=== PATIENT | male | born 1940 | race Caucasian/White ===

== ENCOUNTER 2022-04-09 14:17 | Outpatient (CLI) | payer MEDICARE, BC, SELFPAY ==
[2022-04-09 12:30] LABS: Albumin* 4.5 g/dL (3.3-5.0); Chloride* 105 mmol/L (96-114)
[2022-04-09 12:31] LABS: Potassium* 4.8 mmol/L (3.6-5.1); Sodium* 139 mmol/L (135-149)
[2022-04-09 12:33] LABS: Alkaline Phosphatase* 86 U/L (40-150); Aspartate Amino Transferase* 25 U/L (12-35); Bilirubin Total* 0.6 mg/dL (0.1-1.5); Blood Urea Nitrogen* 13 mg/dL (7-30); Carbon Dioxide* 28 mmol/L (20-32); Cholesterol* 165 mg/dL (90-199); Creatinine* 0.8 mg/dL (0.5-1.5); Estimated Glomerular Filt Rate 89 ml/min
[2022-04-09 12:34] LABS: Alanine Aminotransferase* 17 U/L (4-50); Calcium* 9.2 mg/dL (8.4-10.6); Glucose* 92 mg/dL (60-115); HDL Cholesterol* 53 mg/dL (>=40); LDL Cholesterol Calculated 82 mg/dL (<100); Triglycerides* 150 mg/dL (40-149)
[2022-04-09 13:04] LABS: PSA Diagnostic* 2.38 ng/mL (0.10-4.00)
== END 2022-04-09 14:18 | disposition home or self-care (01) ==
PROVIDERS: PCP Family Medicine; Visit Provider Family Medicine
DX: Z00.00 Encounter for general adult medical examination without abnormal findings (principal); C61 Malignant neoplasm of prostate; E78.5 Hyperlipidemia, unspecified; Z12.5 Encounter for screening for malignant neoplasm of prostate
CPT/HCPCS: 80053; 80061; 84153

== ENCOUNTER 2023-04-29 09:13 | Outpatient (REF) | payer MEDICARE, BC, SELFPAY | END 2023-04-29 09:14 | disposition home or self-care (01) | LOC: NFLDREF 09:13 | PROVIDERS: PCP Family Medicine; Referring Provider Family Medicine; Visit Provider Family Medicine | DX: I25.10 Atherosclerotic heart disease of native coronary artery without angina pectoris (principal); E78.5 Hyperlipidemia, unspecified; C61 Malignant neoplasm of prostate | CPT/HCPCS: 80053; 80061; 84153 ==

== ENCOUNTER 2023-11-28 09:11 | Outpatient (CLI) | payer MEDICARE, BC, SELFPAY ==
--- NOTE | 2023-11-28 09:45 | CRLHL7_ITS ---
For Patients: As a result of the Century Cures Act, medical imaging exams and procedure reports are released immediately into your electronic medical record. You may view this report before your referring provider. If you have questions, please contact your health care provider. Indication: Radiculopathy. Technique: MRI of the cervical spine was performed without the use of intravenous contrast. Comparison: None relevant available. Findings: The vertebral body heights appear maintained without evidence of fracture. No discrete T1 hypointense marrow infiltrating process. Moderate multilevel disc height loss and degeneration. Slight straightening to the cervical lordosis. There may be subtle stir hyperintense cord signal change at the C5-6 level. C2-3: No spinal canal narrowing. Mild neural foraminal narrowing secondary to uncovertebral joint and facet hypertrophy. C3-4: Disc bulge results in mild spinal canal narrowing. Moderately severe right and moderate left neural foraminal narrowing secondary to uncovertebral joint and facet hypertrophy. C4-5: Disc bulge resulting in [id number] spinal canal narrowing. Moderately severe neural foraminal stenosis secondary to uncovertebral joint and facet hypertrophy. Fluid and reactive marrow edema right facet joint. C5-6: Disc protrusion resulting in severe spinal canal narrowing with mild cord flattening. Moderately severe neural foraminal stenosis secondary to uncovertebral joint and facet hypertrophy. C6-7: Disc bulge results in moderate spinal canal narrowing. Moderate neural foraminal narrowing. C7-T1: No spinal canal narrowing. Mild right neural foraminal narrowing. Left neural foramen is patent. Impression: 1. At C3-4, mild spinal canal with moderately severe right and moderate left neural foraminal stenosis. 2. At C4-5, mild to moderate spinal canal with moderately severe neural foraminal stenosis. 3. At C5-6, severe spinal canal stenosis with mild cord flattening. Moderately severe neural foraminal stenosis. 4. At C6-7, moderate spinal canal and neural foraminal stenosis. 5. Right C4-5 facet joint reactive arthritis/active degeneration with joint fluid and marrow edema. 6. Subtle STIR hyperintense cord signal change at the C5-6 level may represent myelomalacia. Dictated by Santi Toth MD @ 11/29/2023 2:22:34 PM (Electronically Signed)
--- NOTE | 2023-11-28 10:30 | CRLHL7_ITS ---
For Patients: As a result of the Century Cures Act, medical imaging exams and procedure reports are released immediately into your electronic medical record. You may view this report before your referring provider. If you have questions, please contact your health care provider. INDICATION: Lumbar radiculopathy. TECHNIQUE : Lumbar spine MRI without contrast. COMPARISON: Lumbar spine MRI from 10/14/2018. FINDINGS : Five lumbar type vertebral bodies, with the last fully formed disc space designated as L5-S1. Normal lumbar lordosis. Mild levoconvex lumbar scoliosis with apex at L2. No recent compression fracture or marrow replacing process. Lower cord/conus signal is normal. The conus terminates at a normal location. No intradural lesion. Partially imaged infrarenal abdominal aortic aneurysm. Discs/Endplates: Advanced disc height loss, disc desiccation and degenerative endplate remodeling at L1-2/L2-3 on the right, L3-4 posteriorly, L4-5 on the left, and L5-S1 posteriorly. [id number] disc height loss and disc desiccation elsewhere. Exuberant type 1 reactive marrow changes at L1-2 and L2-3. Mild type 1 reactive marrow changes at L3-4 on the right. Mild type 1 reactive marrow changes at L4-5 and L5-S1 on the left. Findings at individual levels as follows: T11-12: Mild disc bulge. No spinal canal or neural foraminal stenosis. T12-L1: Trace retrolisthesis. Mild disc bulge. Bilateral facet arthrosis. Mild spinal canal stenosis and mild bilateral neural foraminal stenosis. L1-2: Trace retrolisthesis. Moderate disc bulge with overlying osteophytic ridging, asymmetric to the right. Bilateral low-grade facet arthrosis. Mild spinal canal stenosis and right subarticular recess stenosis with encroachment of the traversing right L2 nerve root. Mild left and moderate right neural foraminal stenosis. L2-3: Trace retrolisthesis. Moderate disc bulge with underlying osteophytic ridging. Bilateral facet arthrosis. Yjbj-ev-ckslqqja spinal canal stenosis and mild bilateral neural foraminal stenosis. L3-4: Moderate disc bulge with overlying osteophytic ridging. Bilateral facet arthrosis and ligamentum flavum thickening. Advanced spinal canal stenosis with buckling of the cauda equina. A superimposed right foraminal/far lateral disc protrusion which impinges the right L3 nerve root. Moderate left and moderately advanced right neural foraminal stenosis. L4-5: 3 millimeters anterolisthesis. Superior disc unroofing and superimposed moderate disc bulge with underlying osteophytic ridging, asymmetric to the left. Bilateral facet arthrosis. Moderately advanced spinal canal stenosis and left subarticular recess stenosis with impingement of the traversing left L5 nerve root. Mild right and moderately advanced left neural foraminal stenosis with impingement of the exiting left L4 nerve root. L5-S1: Trace anterolisthesis. Moderate disc bulge with underlying osteophytic ridging, asymmetric to the left. Bilateral facet arthrosis, high-grade on the left. Mild to moderate right and moderately advanced left neural foraminal stenosis with impingement of the exiting left L4 nerve root. Imaged SI joints: Bilateral arthrosis. Imaged sacrum: Within normal limits. IMPRESSION: 1. At L3-4, advanced spinal canal stenosis, progressed since prior MRI. A right foraminal/far lateral protrusion impinges the right L3 nerve root with moderately advanced right neural foraminal stenosis. New since prior MRI. 2. At L4-5, moderately advanced spinal canal stenosis and left subarticular recess stenosis with impingement of the traversing left L5 nerve root. Progressed since prior MRI. Moderately advanced left neural foraminal stenosis with impingement of the exiting left L4 nerve root. Stable. 3. At L5-S1, moderately advanced left neural foraminal stenosis with impingement of the exiting left L5 nerve root. Stable. 4. Diffuse lumbar disc degeneration asymmetric height loss contributing to mild levoconvex scoliosis. Type 1 reactive marrow changes at most levels. 5. Partially imaged infrarenal abdominal aortic aneurysm. Also visible on CT from 09/20/2021. Dictated by Ricardo Zhao MD @ 12/02/2023 10:25:34 AM (Electronically Signed)
== END 2023-11-28 09:12 | disposition home or self-care (01) ==
LOC: MRI 09:13
PROVIDERS: PCP Family Medicine; Visit Provider Nurse Practitioner Family
DX: M54.12 Radiculopathy, cervical region (principal); M48.02 Spinal stenosis, cervical region; M51.36 Other intervertebral disc degeneration, lumbar region; M54.16 Radiculopathy, lumbar region
CPT/HCPCS: 72141; 72148

== ENCOUNTER 2023-12-23 10:04 | Outpatient (CLI) | payer MEDICARE, BC, SELFPAY ==
--- NOTE | 2023-12-23 10:00 | CRLHL7_ITS ---
For Patients: As a result of the Century Cures Act, medical imaging exams and procedure reports are released immediately into your electronic medical record. You may view this report before your referring provider. If you have questions, please contact your health care provider. Indication: Back pain Technique: Lumbar spine two views, lateral flexion and extension Comparison: 11/28/2023 IMPRESSION: Grade 1 degenerative spondylolisthesis of L5 on S1. No vertebral body compression fracture. Multilevel degenerative changes most prominent at L1-2. Vascular calcifications. Multilevel facet degeneration. Dictated by Mack Alvarez MD @ 12/23/2023 10:28:25 AM (Electronically Signed)
== END 2023-12-23 10:05 | disposition home or self-care (01) ==
PROVIDERS: PCP Family Medicine; Visit Provider Nurse Practitioner Family
DX: M54.9 Dorsalgia, unspecified (principal); M43.17 Spondylolisthesis, lumbosacral region
CPT/HCPCS: 72100

== ENCOUNTER 2024-01-29 13:27 | Outpatient (CLI) | payer MEDICARE, BC, SELFPAY | END 2024-01-29 13:28 | disposition home or self-care (01) | LOC: NFLDREF 13:28 | PROVIDERS: PCP Family Medicine; Visit Provider Family Medicine | DX: I25.10 Atherosclerotic heart disease of native coronary artery without angina pectoris (principal) | CPT/HCPCS: 80048 ==

== ENCOUNTER 2024-02-28 08:14 | Observation (INO) | payer MEDICARE, BC, SELFPAY ==
[2024-02-28] VITALS (9 sets, daily range): BP systolic 133–200; BP diastolic 80–105; PULSE 68–79; RESP 14–20; TEMP 36.6–37.3; O2SAT 92–96; BMI 26.9; BMI 27.2
--- NOTE | 2024-02-28 09:26 | ED_ITS ---
<Statement entered by Laura Alford MD - 03/04/24 15:45> inadvertently opened. HPI - General Adult General Chief complaint: Back Injury/Pain Stated complaint: Extreme pain s/p spinal stim procedure yesterday Time Seen by Provider: 02/28/24 09:26 History of Present Illness HPI narrative: Pt had spinal stimulator placed yesterday at [facility] in [place]. Now is having worsened back pain, leg pain, and severe headache which started immediately post-procedure. 9/10 pain. Pt declined pain medication that was offered by the surgical clinic at that time. Pt also states he has not had BM in 3 days. 84-year-old man presenting to the emergency department with concern of terrible low back bilateral leg pain and headache. History of spinal stenosis in the cervical and lumbar spine and yesterday with placement of a spinal stimulator. Pain has been present since that time. Is not had any fever or noted any swelling. They have been taking tablets of [place] overnight it sounds like dosed 1 at the time. It has been 3 days since he has had a bowel movement. Headache is not clearly positional. New pain includes radiation into his legs bilaterally and the headache. Is not complaining of shortness of breath or chest pain. Lives independently however son has been staying with him lately. Son accompanies here today. Related Data Home Medications ?Medication ?Instructions ?Recorded ?Confirmed amlodipine 2.5 mg tablet 2.5 mg PO DAILY 02/28/24 03/02/24 cephalexin 500 mg capsule 500 mg PO Q6H 02/28/24 03/02/24 lovastatin 20 mg tablet 20 mg PO HS 02/28/24 03/02/24 Previous Rx's ?Medication ?Instructions ?Recorded gabapentin 300 mg capsule 300 mg PO TID #270 caps 05/01/23 lisinopril 40 mg tablet 40 mg PO DAILY #90 tabs 05/01/23 metoprolol succinate 50 mg 50 mg PO DAILY #90 tabs 05/01/23 tablet,extended release 24 hr omeprazole 20 mg capsule,delayed 20 mg PO DAILY #90 caps 05/01/23 release polyethylene glycol 3350 17 gram 17 g PO DAILY #30 ea 02/29/24 oral powder packet (Miralax) sennosides 8.6 mg-docusate sodium 2 tab PO BID #120 tabs 02/29/24 50 mg tablet (Stool Softener-Laxative) hydrocodone 5 mg-acetaminophen 325 2 tab PO Q4H PRN pain #30 tabs 03/03/24 mg tablet Allergies Allergy/AdvReac Type Severity Reaction Status Date / Time No Known Allergies Allergy Unverified 03/02/24 14:57 Review of Systems Status of ROS: Reports: 6 or more systems reviewed and unremarkable except as noted in History and below [facility] Medical History Chronic low back pain ?M54.50 - Low back pain, unspecified (ICD-10) ?G89.29 - Other chronic pain (ICD-10) Chronic neck pain ?M54.2 - Cervicalgia (ICD-10) ?G89.29 - Other chronic pain (ICD-10) Colon polyp ?K63.5 - Polyp of colon (ICD-10) Coronary artery disease ?I25.10 - Atherosclerotic heart disease of [place] coronary artery without angina pectoris (ICD-10) 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 ?M50.90 - Cervical disc disorder, unspecified, unspecified cervical region (ICD-10) Fasting hyperglycemia ?R73.01 - Impaired fasting glucose (ICD-10) GERD (gastroesophageal reflux disease) ?K21.9 - Gastro-esophageal reflux disease without esophagitis (ICD-10) 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 ?M51.26 - Other intervertebral disc displacement, lumbar region (ICD-10) ?M51.36 - Other intervertebral disc degeneration, lumbar region (ICD-10) Hyperlipidemia ?E78.5 - Hyperlipidemia, unspecified (ICD-10) Hypertension ?I10 - Essential (primary) hypertension (ICD-10) Malignant neoplasm of prostate ?C61 - Malignant neoplasm of prostate (ICD-10) Mastoiditis ?H70.90 - Unspecified mastoiditis, unspecified ear (ICD-10) Partial small bowel obstruction ?K56.600 - Partial intestinal obstruction, unspecified as to cause (ICD-10) Small bowel obstruction ?K56.609 - Unspecified intestinal obstruction, unspecified as to partial ve rsus complete obstruction (ICD-10) History of pilonidal cyst ?Z87.2 - Personal history of diseases of the skin and subcutaneous tissue (ICD-10) History of malignant neoplasm of prostate ?Z85.46 - Personal history of malignant neoplasm of prostate (ICD-10) Surgical History Status post prostatectomy ?Z90.79 - Acquired absence of other genital organ(s) (ICD-10) History of right inguinal hernia repair ?Z98.890 - Other specified postprocedural states (ICD-10) ?Z87.19 - Personal history of other diseases of the digestive system (ICD-10) History of hernia repair ?Z98.890 - Other specified postprocedural states (ICD-10) ?Z87.19 - Personal history of other diseases of the digestive system (ICD-10) Social History What is your current living situation?: I presently have a place to live Problems where you live: no known problems Problems where you live details: none In the past 12 months, utilities in danger of being shut off: no In past 12 months, lack of transportation kept you from medical appts, meetings, work, or getting things needed for daily living: no In the past 12 mos, have been you worried that your food would run out before you had money to buy more?: never true In the past 12 mos, the food you bought just didn't last and you didn't have money to buy more?: never true Highest level of school completed/degree received: Associate degree: occupational, technical, vocational program Smoking Status: Current some day smoker What tobacco products do you use: cigars Nicotine containing products detail: cigars at times How often do you have a drink containing alcohol: 4 or more times a week Al cohol type: hard liquor How many standard drinks containing alcohol do you have on a typical day: 1 or 2 How often do you have six or more drinks on one occasion: Never AUDIT-C Alcohol total score: 4 Non-prescribed substance use: denies use Caffeine: Yes (coffee) How often does anyone, including family, friends and others, physically hurt you : never How often does anyone, including family, friends and others, insult or talk down to you: never How often does anyone, including family, friends and others, threaten you with harm: never How often does anyone, including family, friends and others, scream or curse at you: never Little interest or pleasure in doing things: several days Feeling down, depressed, or hopeless: not at all service: Yes Exam Narrative: Exam Narrative: Pleasant. Clearly very uncomfortable. Groans with transitions. I find him lying on his right side. He is breathing easily. Lungs appear to be clear. Examination of the bandages in his back show small spot of dried blood in the bandage centrally. No surrounding inflammatory changes or swelling. Heart in regular rate and rhythm. Const: Vital Signs, click to edit/add: Vital Signs - 24 hr 02/28/24 08:21 02/28/24 11:05 Temperature 97.8 F Pulse Rate [Pulse Oximeter] 78 72 Respiratory Rate 16 16 Blood Pressure [Ri ght Upper Arm] 197/92 H 171/88 H Pulse Oximetry 95 92 Oxygen Delivery Me thod Room Air Room Air Documenting provider has reviewed patient's vital signs: yes Course Vital Signs Vital signs: Initial Vital Signs Temperature 97.8 F 02/28/24 08:21 Temperature Source Temporal Artery Scan 02/28/24 08:21 Pulse Rate 78 02/28/24 08:21 Respiratory Rate 16 02/28/24 08:21 Blood Pressure 197/92 H 02/28/24 08:21 Blood Pressure Mean 127 H 02/28/24 08:21 Blood Pressure Position Left Lateral 02/28/24 08:21 Pulse Oximetry 95 02/28/24 08:21 Oxygen Delivery Method Room Air 02/28/24 08:21 Vital Signs Temperature 97.8 F 02/28/24 08:21 Pulse Rate 78 02/28/24 08:21 Respiratory Rate 16 02/28/24 08:21 Blood Pressure 197/92 H 02/28/24 08:21 Pulse Oximetry 95 02/28/24 08:21 Oxygen Delivery Method Room Air 02/28/24 08:21 Temperature 98.6 F 02/29/24 11:22 Pulse Rate 75 02/29/24 11:22 Respiratory Rate 20 02/29/24 11:22 Blood Pressure 114/65 02/29/24 11:22 Pulse Oximetry 92 02/29/24 11:22 Oxygen Delivery Method Room Air 02/29/24 11:22 Medications Administered Medications: Discontinued Medications Generic Name Dose Route Start Last Admin Trade Name Freq PRN Reason Stop Dose Admin Hydrocodone Bitart/Acetaminophen 2 tab 02/28/24 10:40 02/28/24 11:01 Hydrocodone-Acetamin 5-325 Mg 1 Tab PO 02/28/24 10:41 2 tab ONCE ONE Administration Hydrocodone Bitart/Acetaminophen 2 tab 02/28/24 14:58 02/29/24 11:39 Hydrocodone-Acetamin 5-325 Mg 1 Tab PO 2 tab Q4H PRN Administration Amlodipine Besylate 2.5 mg 02/29/24 09:00 02/29/24 08:41 Amlodipine 5 Mg Tablet PO 2.5 mg DAILY PATSY Administration Amlodipine Besylate 5 mg 02/28/24 20:18 02/28/24 20:53 Amlodipine 5 Mg Tablet PO 02/28/24 20:19 5 mg ONCE ONE Administration Cephalexin HCl 500 mg 02/28/24 17:00 02/29/24 11:39 Cephalexin 500 Mg Capsule PO 500 mg 0700,1200,1700,2300 PATSY Administration Gabapentin 300 mg 02/28/24 21:00 02/29/24 08:41 Gabapentin 300 Mg Capsule PO 300 mg TID PATSY Administration Hydromorphone HCl 1 mg 02/28/24 09:35 02/28/24 09:57 Hydromorphone 0.5 Mg/0.5 Ml Inj IM 02/28/24 09:36 1 mg ONCE ONE Administration Lisinopril 40 mg 02/29/24 09:00 02/29/24 08:42 Lisinopril 20 Mg Tablet PO 40 mg DAILY PATSY Administration Lovastatin 20 mg 02/28/24 21:00 02/28/24 20:12 Lovastatin 20 Mg Tablet PO 20 mg HS PATSY Administration Metoprolol Succinate 50 mg 02/29/24 09:00 02/29/24 08:42 Metoprolol Succinate (Xl) 50 Mg Tab PO 50 mg DAILY PATSY Administration Omeprazole 20 mg 02/29/24 07:00 02/29/24 06:39 Omeprazole [address] PO 20 mg DAILY@0700 PATSY Administration Polyethylene Glycol 17 gm 02/28/24 14:58 02/28/24 15:20 Polyethylene Glycol 3350 17 Gm Pack PO 02/28/24 14:59 17 gm ONCE ONE Administration Polyethylene Glycol 17 gm 02/29/24 09:00 02/29/24 08:41 Polyethylene Glycol 3350 17 Gm Pack PO 17 gm DAILY PATSY Administration Senna/Docusate Sodium 2 tab 02/28/24 09:36 02/28/24 09:56 Sennosides/Docusate Tablet PO 02/28/24 09:37 2 tab BID ONE Administration Senna/Docusate Sodium 2 tab 02/28/24 21:00 02/29/24 08:42 Sennosides/Docusate Tablet PO 2 tab BID PATSY Administration Sodium Chloride 5 ml 02/28/24 21:00 02/29/24 08:42 Sodium Chloride 0.9 % (Flush) 10 Ml Syringe IVF 5 ml BID PATSY Administration Medical Decision Making MDM Narrative Medical decision making narrative: I think this is of too short duration to be infectious. Certainly could be hematoma collection that is contributing to these symptoms. There was concern expressed of spinal headache but I think that is not likely the case. This headache is not necessarily worsened when going to seated position. I do think that most likely what is needed is to try to break this pain and then see what pain management is needed however considering presentation here and recent manipulation in the spine I think will need imaging to verify whether not hematoma is present. Given injection of hydromorphone. CT of the lumbar spine reviewed by me shows extensive degenerative changes to this spine but I do not appreciate any hematoma. Stimulator lead noted. Radiology over-read as below notes also a pneumothorax. Technique: Volumetric multidetector CT images of the lumbar spine were obtained without the administration of IV contrast. Comparison: MRI lumbar spine November 28, 2023 Findings: The lumbar vertebral body heights are grossly preserved with extensive endplate Modic and subchondral cystic changes. There is straightening of the normal lumbar lordosis with moderate levo scoliotic deformity of the AP alignment. There is again seen severe multilevel degenerative disc disease with extensive vacuum disc phenomenon, marginal osteophyte formation, subchondral sclerosis and subchondral cystic changes. There is persistent moderate to severe spinal canal narrowing of the L4-L5 and L3-L4 levels. There is no displaced fracture or dislocation. There is postoperative change status post epidural stimulator placement with partial visualization of the pacer pack with minimal subcutaneous emphysema within the superficial paraspinous soft tissues. Grossly, the leads are intact throughout with demonstration of insertion into the thecal sac at the T12-L1 level with demonstration of epidural leads tracking along the left lateral thecal sac. Incidental note is made of moderate subpleural air within the partially visualized left hemidiaphragm likely representing a small left-sided pneumothorax. Additional air tracks along the left psoas muscle. No evidence of obvious epidural fluid. Impression: 1. Postoperative changes status post epidural stimulator placement with leads entering the spinal canal and thecal sac at the left L1 lamina and coursing along the left lateral aspect of the spinal canal above the visualized [id number]. 2. Incidental note made of mild left paraspinous and left sided subpleural air commensurate with a small left-sided pneumothorax with minimal air tracking along the left psoas muscle. Additional trace air is seen within the intrathecal space and left lateral epidural space at the L1-L2 level. 3. Otherwise stable degenerative changes of the lumbar spine worst at the L3-L4 and L4-L5 levels without evidence of significant postprocedural spinal canal narrowing or epidural hemorrhage. Will do a one view chest x-ray to evaluate further this pneumothorax. By my read on this chest x-ray I cannot see any pneumothorax. Did discuss this case with care provider at facility from yesterday. Noted no complications and quite unsure as to how pneumothorax might be potentially related. I think at this point general need to be admitted for monitoring for progression of this pneumothorax and to determine pain management needs. Did discuss this case with General surgery and as requested by admitting hospitalist will CT image looking for other potential causes of this pneumothorax. Medical Records Medical records reviewed: Yes I reviewed the patient's medical records Discharge Plan Discharge Clinical Impression: Uncontrolled pain, Pneumothorax Patient Disposition: Admitted As Observation Condition: Improved Activity Level: Activity as Tolerated Discharge Diet: Regular
--- NOTE | 2024-02-28 09:35 | CRLHL7_ITS ---
For Patients: As a result of the Century Cures Act, medical imaging exams and procedure reports are released immediately into your electronic medical record. You may view this report before your referring provider. If you have questions, please contact your health care provider. Indication: Spinal stimulator placement, increasing pain Technique: Volumetric multidetector CT images of the lumbar spine were obtained without the administration of IV contrast. Comparison: MRI lumbar spine November 28, 2023 Findings: The lumbar vertebral body heights are grossly preserved with extensive endplate Modic and subchondral cystic changes. There is straightening of the normal lumbar lordosis with moderate levo scoliotic deformity of the AP alignment. There is again seen severe multilevel degenerative disc disease with extensive vacuum disc phenomenon, marginal osteophyte formation, subchondral sclerosis and subchondral cystic changes. There is persistent moderate to severe spinal canal narrowing of the L4-L5 and L3-L4 levels. There is no displaced fracture or dislocation. There is postoperative change status post epidural stimulator placement with partial visualization of the pacer pack with minimal subcutaneous emphysema within the superficial paraspinous soft tissues. Grossly, the leads are intact throughout with demonstration of insertion into the thecal sac at the T12-L1 level with demonstration of epidural leads tracking along the left lateral thecal sac. Incidental note is made of moderate subpleural air within the partially visualized left hemidiaphragm likely representing a small left-sided pneumothorax. Additional air tracks along the left psoas muscle. No evidence of obvious epidural fluid. Impression: 1. Postoperative changes status post epidural stimulator placement with leads entering the spinal canal and thecal sac at the left L1 lamina and coursing along the left lateral aspect of the spinal canal above the visualized [id number]. 2. Incidental note made of mild left paraspinous and left sided subpleural air commensurate with a small left-sided pneumothorax with minimal air tracking along the left psoas muscle. Additional trace air is seen within the intrathecal space and left lateral epidural space at the L1-L2 level. 3. Otherwise stable degenerative changes of the lumbar spine worst at the L3-L4 and L4-L5 levels without evidence of significant postprocedural spinal canal narrowing or epidural hemorrhage. Please note that all CT scans at this facility use dose modulation, iterative reconstruction, and/or weight-based dosing when appropriate to reduce radiation dose to as low as reasonably achievable. Dictated by Dieudonne Scott MD @ 02/28/2024 10:28:08 AM (Electronically Signed)
[2024-02-28] MEDS: SENNOSIDES/DOCUSATE TABLET 2 TAB PO ×2 (09:56→20:11)
[2024-02-28] MEDS: HYDROmorphone 0.5 mg/0.5 ml inj 1 MG IM (09:57)
--- NOTE | 2024-02-28 10:32 | CRLHL7_ITS ---
For Patients: As a result of the Century Cures Act, medical imaging exams and procedure reports are released immediately into your electronic medical record. You may view this report before your referring provider. If you have questions, please contact your health care provider. Indication: Evaluate for pneumothorax. Technique: One view(s) of the chest. Comparison: Lumbar spine CT from 02/28/2024, 09/20/2021. Findings: Partially visualized spinal cord stimulator leads are present with tip at the T7 level. No pneumothorax seen on prior lumbar spine CT is not apparent radiographically. Cardiomediastinal silhouette is mildly enlarged. Atherosclerotic aortic calcifications. There are streaky opacities in the left lung base favoring subsegmental atelectasis. Possible nodular opacities along the left heart border (measuring 10 mm) and overlying the anterior right 4th rib (measuring 4 mm). No pleural effusion. Impression: 1. Known left pneumothorax seen on recent CT is not visualized radiographically. 2. Mild left basilar subsegmental atelectasis. 3. Two possible pulmonary nodules. Recommend nonemergent chest CT for further evaluation. Dictated by Cata Bynum MD @ 02/28/2024 11:13:53 AM (Electronically Signed)
[2024-02-28] MEDS: HYDROCODONE-ACETAMIN 5-325 MG 1 TAB 2 TAB PO ×3 (11:01→20:10)
--- NOTE | 2024-02-28 12:13 | CRLHL7_ITS ---
For Patients: As a result of the Century Cures Act, medical imaging exams and procedure reports are released immediately into your electronic medical record. You may view this report before your referring provider. If you have questions, please contact your health care provider. Indication: Evaluate pneumothorax. Technique: CT of the chest was performed following the administration of 75 mL Isovue 370. Comparison: Same day chest radiograph and lumbar spine CT. Findings: Lungs and pleura: Trace left basilar pneumothorax. No pleural effusion. No right pneumothorax. Mild dependent atelectasis in the upper and lower lobes. Subpleural right lower lobe pulmonary nodule measuring 7 mm. Few additional smaller right lower lobe pulmonary nodules. Left upper lobe calcified granuloma. Subpleural lingular nodule measures 5 mm. Heart and great vessels: The heart is normal in size. No pericardial effusion. Mildly enlarged main pulmonary artery, which can be seen in the setting of pulmonary artery hypertension. Moderate atherosclerotic aortic, coronary artery calcifications. Aortic valvular calcifications.. Thyroid and mediastinum: Thyroid is normal. No mediastinal lymphadenopathy by size criteria. Chest wall: Unremarkable. Visualized upper abdomen: 3 mm right upper pole nonobstructing renal calculus. Bones: Spinal cord stimulator leads are seen within the lower thoracic spine, tips at the T7 level. A small amount of gas is seen within the spinal canal at the T5 level. Multilevel degenerative disc disease. No acute fracture. Impression: 1. Trace left basilar pneumothorax. 2. Spinal cord stimulator leads terminate at T7. Small amount of air within the spinal canal at the T5 level. 3. Bilateral noncalcified pulmonary nodules measuring up to 7 mm in the right lower lobe. Recommend chest CT follow-up in 6-12 months to document stability. 4. Nonobstructing right upper pole renal calculus. Please note that all CT scans at this facility use dose modulation, iterative reconstruction, and/or weight-based dosing when appropriate to reduce radiation dose to as low as reasonably achievable. Dictated by Cata Bynum MD @ 02/28/2024 1:00:50 PM (Electronically Signed)
--- NOTE | 2024-02-28 14:57 | PM.IMHP1 ---
Hospitalist- H&P: HPI History of Present Illness Date Seen: 02/28/24 Chief complaint: Extreme pain s/p spinal stim procedure yesterday Narrative: Marino Sims is a 84 year old man with known chronic low back pain and cervical radiculopathy presents with worsened back pain and leg pain status post spinal stimulator implant yesterday, 02/27/2024. Underwent a trial of an external stimulator device with a modicum of benefit. After her health insurance approval, he opted to proceed with permanent spinal stimulation implantation which was undertaken yesterday. Reportedly he had had pain after the implantation that was more than what he ordinarily experiences. Nevertheless he was discharged home with prescription for hydrocodone 5/acetaminophen 325, 1/2-1 tab p.o. q.4 hours p.r.n. for pain. He attempted utilizing this without much relief. This morning the pain was more intense than what he has previously experienced. He and his son, Tam, opted to come into the hospital for further assessment at that time. In the course of the evaluation in the [facility] Emergency Department, CT scan of the lumbar spine were obtained without administration of IV contrast. The findings from this exam include the followin. Postoperative changes status post epidural stimulator placement with leads entering the spinal canal and thecal sac at the left L1 lamina and coursing along the left lateral aspect of the spinal canal above the visualized [id number]. 2. Incidental note made of mild left paraspinous and left sided subpleural air commensurate with a small left-sided pneumothorax with minimal air tracking along the left psoas muscle. Additional trace air is seen within the intrathecal space and left lateral epidural space at the L1-L2 level. 3. Otherwise stable degenerative changes of the lumbar spine worst at the L3-L4 and L4-L5 levels without evidence of significant postprocedural spinal canal narrowing or epidural hemorrhage. Call is placed to the [facility] in [place] worry he had the stimulator implanted. These findings were discussed. Pain specialist indicated that they have not had a pneumothorax with implantation of spinal stimulator in the past and that this is unusual. Discussion was also held with our general surgeon at [facility], who recommended that given the small size of the pneumothorax that we admit the patient for observation and that there is no indication to proceed with any other stabilizing procedures. Chest x-ray was obtained subsequently and did not demonstrate the presence of the small pneumothorax. CT scan of the chest was undertaken read demonstrating the known left pneumothorax seen on the CT scan and not seen on the chest x-ray. In the emergency department patient was given 2 tabs of the hydrocodone 5/acetaminophen 325 and noticed significant amount of pain relief. Review of Systems Narrative: Denies chest heaviness, pressure, tightness, or pain. Pain is mainly in the in the back. Denies syncope or near-syncope. Denies nausea or vomiting. Acknowledges decreased interest in eating when the pain was so intense earlier today. Is now interested in eating. Denies abdominal pain. Acknowledges no bowel movements for the last 3 days. This is not terribly unusual for him. He is known to have recurrent intermittent constipation. Has not had blood loss of any sort including upper or lower GI tract or urogenital or any other source. No recent trauma or injury aside from implant of the spinal stimulator as noted above which was undertaken on 02/27/2024. Denies any recent febrile illnesses. No fevers, rigors, diaphoresis. Denies dysuria, urgency, frequency, hematuria. Denies urinary retention. No focal motor neurologic deficits. Denies myalgias or arthralgias. Lives alone. His son, Tam, has been helping him out a lot more over the past 1 week. Tam spent the night with him last night. Patient's primary care physician is Dr. Norman Porter. Patient requests DNR DNI resuscitation status in the event of cardiopulmonary demise. He designates his son, Tam, as his power of traffic law attorney for health should that be required. Tam cell phone is [phone]. As I a.m. reviewed the patient's records his weight was 87 kg in September 2023, 84 kg on 01/29/2024, and today in the hospital his weight is 81.2 kg on a standing scale. Patient acknowledges decreased oral intake as he has been having more difficulties with pain management. He is not necessarily trying to lose weight. [facility] Medical History Chronic low back pain ?M54.50 - Low back pain, unspecified (ICD-10) ?G89.29 - Other chronic pain (ICD-10) Chronic neck pain ?M54.2 - Cervicalgia (ICD-10) ?G89.29 - Other chronic pain (ICD-10) Colon polyp ?K63.5 - Polyp of colon (ICD-10) Coronary artery disease ?I25.10 - Atherosclerotic heart disease of nikolski coronary artery without angina pectoris (ICD-10) 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 ?M50.90 - Cervical disc disorder, unspecified, unspecified cervical region (ICD-10) Fasting hyperglycemia ?R73.01 - Impaired fasting glucose (ICD-10) GERD (gastroesophageal reflux disease) ?K21.9 - Gastro-esophageal reflux disease without esophagitis (ICD-10) 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 ?M51.26 - Other intervertebral disc displacement, lumbar region (ICD-10) ?M51.36 - Other intervertebral disc degeneration, lumbar region (ICD-10) Hyperlipidemia ?E78.5 - Hyperlipidemia, unspecified (ICD-10) Hypertension ?I10 - Essential (primary) hypertension (ICD-10) Malignant neoplasm of prostate ?C61 - Malignant neoplasm of prostate (ICD-10) Mastoiditis ?H70.90 - Unspecified mastoiditis, unspecified ear (ICD-10) Partial small bowel obstruction ?K56.600 - Partial intestinal obstruction, unspecified as to cause (ICD-10) Small bowel obstruction ?K56.609 - Unspecified intestinal obstruction, unspecified as to partial versus complete obstruction (ICD-10) History of pilonidal cyst ?Z87.2 - Personal history of diseases of the skin and subcutaneous tissue (ICD-10) History of malignant neoplasm of prostate ?Z85.46 - Personal history of malignant neoplasm of prostate (ICD-10) Surgical History Status post prostatectomy ?Z90.79 - Acquired absence of other genital organ(s) (ICD-10) History of right inguinal hernia repair ?Z98.890 - Other specified postprocedural states (ICD-10) ?Z87.19 - Personal history of other diseases of the digestive system (ICD-10) History of hernia repair ?Z98.890 - Other specified postprocedural states (ICD-10) ?Z87.19 - Personal history of other diseases of the digestive system (ICD-10) Social History What is your current living situation?: I presently have a place to live Problems where you live: no known problems Problems where you live details: none In the past 12 months, utilities in danger of being shut off: no In past 12 months, lack of transportation kept you from medical appts, meetings, work, or getting things needed for daily living: no In the past 12 mos, have been you worried that your food would run out before you had money to buy more?: never true In the past 12 mos, the food you bought just didn't last and you didn't have money to buy more?: never true Highest level of school completed/degree received: Associate degree: occupational, technical, vocational program Smoking Status: Current some day smoker What tobacco products do you use: cigars Nicotine containing products detail: cigars at times How often do you have a drink containing alcohol: 4 or more times a week Alcohol type: hard liquor How many standard drinks containing alcohol do you have on a typical day: 1 or 2 How often do you have six or more drinks on one occasion: Never AUDIT-C Alcohol total score: 4 Non-prescribed substance use: denies use Caffeine: Yes (coffee) How often does anyone, including family, friends and others, physically hurt you: never How often does anyone, including family, friends and others, insult or talk down to you: never How often does anyone, including family, friends and others, threaten you with harm: never How often does anyone, including family, friends and others, scream or curse at you: never Little interest or pleasure in doing things: several days Feeling down, depressed, or hopeless: not at all service: Yes Meds Home Medications and Allergies Home Medications ?Medication ?Instructions ?Recorded ?Confirmed ?Type amlodipine 2.5 mg tablet 2.5 mg PO DAILY 02/28/24 02/28/24 History cephalexin 500 mg capsule 500 mg PO Q6H 02/28/24 02/28/24 History hydrocodone 5 mg-acetaminophen 325 0.5 - 1 tab PO Q4H PRN pain 02/28/24 02/28/24 History mg tablet lovastatin 20 mg tablet 20 mg PO HS 02/28/24 02/28/24 History Allergies Allergy/AdvReac Type Severity Reaction Status Date / Time No Known Allergies Allergy Unverified 02/28/24 13:05 Exam Narrative: Exam Narrative: Patient is examined in his hospital room. Appears comfortable in his hospital bed with head of bed elevated at 60?. No acute distress. Alert and oriented x4. Vision and hearing adequate. Friendly, articulate, cooperative. Neck is supple. No subcutaneous emphysema noted. Lungs clear to auscultation. Barrel-shaped chest. No CVA tenderness to thumping. Heart tones with regular rhythm, normal S1-S2. PMI not laterally displaced. Abdomen with active bowel sounds, soft, nontender. Obese. Extremities without edema. Moves all 4 extremities. Independent in transfer, station, and gait. No focal motor neurologic deficits. Const: Vital Signs, click to edit/add: Vital Signs - 24 hr 02/28/24 08:21 02/28/24 09:45 02/28/24 11:05 Temperature 97.8 F Pulse Rate [Pulse Oximeter] 78 72 Respiratory Rate 16 16 Blood Pressure [Le ft Arm] Blood Pressure [Ri ght Upper Arm] 197/92 H 171/88 H Pulse Oximetry 95 92 92 Oxygen Delivery Me thod Room Air Room Air 02/28/24 13:09 02/28/24 13:24 02/28/24 14:20 Temperature 99.2 F Pulse Rate [Pulse Oximeter] 71 73 Respiratory Rate 16 20 20 Blood Pressure [Le ft Arm] 165/102 H Blood Pressure [Ri ght Upper Arm] 139/90 H Pulse Oximetry 95 95 94 Oxygen Delivery Me thod Room Air Room Air Room Air Hospitalist - H&P: Result Imaging CT scan - lumbar spine: Radiologist's impression: 1. Postoperative changes status post epidural stimulator placement with leads entering the spinal canal and thecal sac at the left L1 lamina and coursing along the left lateral aspect of the spinal canal above the visualized [id number]. 2. Incidental note made of mild left paraspinous and left sided subpleural air commensurate with a small left-sided pneumothorax with minimal air tracking along the left psoas muscle. Additional trace air is seen within the intrathecal space and left lateral epidural space at the L1-L2 level. 3. Otherwise stable degenerative changes of the lumbar spine worst at the L3-L4 and L4-L5 levels without evidence of significant postprocedural spinal canal narrowing or epidural hemorrhage. Chest x-ray: Attestation: I have reviewed the pertinent imaging results. Radiologist's impression: 1. Known left pneumothorax seen on recent CT is not visualized radiographically. 2. Mild left basilar subsegmental atelectasis. 3. Two possible pulmonary nodules. Recommend nonemergent chest CT for further evaluation. CT scan - chest: Radiologist's impression: 1. Trace left basilar pneumothorax. 2. Spinal cord stimulator leads terminate at T7. Small amount of air within the spinal canal at the T5 level. 3. Bilateral noncalcified pulmonary nodules measuring up to 7 mm in the right lower lobe. Recommend chest CT follow-up in 6-12 months to document stability. 4. Nonobstructing right upper pole renal calculus. Assessment and Plan Assessment and plan (1) Pneumothorax: Problem comment: - discovered on Lumbar CT scan when assessing uncontrolled pain, with subsequent CT of chest demonstrating the followin. Trace left basilar pneumothorax. 2. Spinal cord stimulator leads terminate at T7. Small amount of air within the spinal canal at the T5 level. 3. Bilateral noncalcified pulmonary nodules measuring up to 7 mm in the right lower lobe. Recommend chest CT follow-up in 6-12 months to document stability. 4. Nonobstructing right upper pole renal calculus. - Reviewed with [facility] physician in [place] who implanted the spinal stimulator. This is an unusual complication of this procedure. - reviewed with general surgeon, [facility], who indicated that there was no need to proceed with placement of a chest tube at this time and recommended overnight observation. - reviewed with patient and son, Tam, who are agreeable with the above stated plan and recommendations. - will need follow-up with his pain clinic physician in time. Status: Acute (2) Uncontrolled pain: Problem comment: - uncontrolled back pain in back s/p spinal stimulator implant 02/27/24 -CT scan of lumbar spine 02/28/24 demonstrated the followin. Postoperative changes status post epidural stimulator placement with leads entering the spinal canal and thecal sac at the left L1 lamina and coursing along the left lateral aspect of the spinal canal above the visualized [id number]. 2. Incidental note made of mild left paraspinous and left sided subpleural air commensurate with a small left-sided pneumothorax with minimal air tracking along the left psoas muscle. Additional trace air is seen within the intrathecal space and left lateral epidural space at the L1-L2 level. 3. Otherwise stable degenerative changes of the lumbar spine worst at the L3-L4 and L4-L5 levels without evidence of significant postprocedural spinal canal narrowing or epidural hemorrhage. - continue with increased dose of the hydrocodone 5/acetaminophen 325, 2 tabs p.o. q.4 hours p.r.n. for pain for now. Monitor his response to this. - will need follow-up with his pain clinic clinician in time. Status: Acute (3) Chronic neck pain: Problem comment: - spinal stenosis with radiculopathy and pain - status [facility] [place] [place] Status: Acute (4) Chronic low back pain: Problem comment: - spinal stenosis with pain - status post spinal stimulator implant 02/27/2024, [facility], [place], [place] Status: Acute (5) Constipation: Problem comment: - acute on chronic with no bowel movement for 3 days prior to presentation to [facility] on 02/28/2024 - initiate scheduled MiraLax as well as scheduled senna tabs. - monitor response Status: Acute (6) Pulmonary nodules: Problem comment: - noted on CT scan of chest 02/28/2024: . Bilateral noncalcified pulmonary nodules measuring up to 7 mm in the right lower lobe. Recommend chest CT follow-up in 6-12 months to document stability. Status: Acute (7) Renal calculi: Problem comment: - noted on CT scan of chest on 02/28/2024: . Nonobstructing right upper pole renal calculus. Status: Acute Plan 1. Reviewed impression with patient and his son Tam 2. Reviewed plans and recommendations with patient and his son Tam 3. Answered their questions to their satisfaction 4. Continue with other supportive efforts for other underlying conditions 5. They are agreeable with above stated plans and recommendations Total Time Spent Total Time Spent: 60 minutes
[2024-02-28] MEDS: polyethylene glycoL 3350 17 GM PACK PO (15:20)
--- NOTE | 2024-02-28 15:30 | PC.NURSE ---
End of Shift: Patient pleasant and cooperative, alert and oriented. Patient arrived to floor about 1315, 1 assist/walker. At admission patient rated back pain 5-6/10, no pain meds given. Patient vitally stable, lungs diminished, BS WNL, IV SL and intact. Admission complete.
[2024-02-28] MEDS: cephALEXin 500 MG CAPSULE PO ×2 (17:26→22:50)
--- NOTE | 2024-02-28 18:55 | PC.NURSE ---
End of shift [id number]: Pt has been A&O and afebrile for the last 4 hours. VSS with exception to elevated BP r/t pain. Pt rates back pain at 6-7/10; PRN [place] given @ 1520 which provides relief. Pt is SBA with rolling walker. Tolerated regular diet with no c/o nausea. Denies dizziness. PIV in left AC is SL and C/D/I.?
[2024-02-28] MEDS: GABAPENTIN 300 MG CAPSULE PO (20:12)
[2024-02-28] MEDS: LOVASTATIN 20 MG TABLET PO (20:12)
[2024-02-28] MEDS: SODIUM CHLORIDE 0.9 % (FLUSH) 10 ML SYRINGE 5 ML IVF (20:12)
[2024-02-28] MEDS: AMLODIPINE 5 MG TABLET PO (20:53)
[2024-02-29] MEDS: HYDROCODONE-ACETAMIN 5-325 MG 1 TAB 2 TAB PO ×3 (00:10→11:39)
[2024-02-29 03:11] VITALS: BP 162/83; PULSE 75; RESP 20; TEMP 36.9; O2SAT 96
[2024-02-29] MEDS: OMEPRAZOLE 20 MG CAPSULE DR PO (06:39)
[2024-02-29] MEDS: cephALEXin 500 MG CAPSULE PO ×2 (06:40→11:39)
--- NOTE | 2024-02-29 06:47 | PC.NURSE ---
End of shift [id number]: Pt AxOx4, cooperative, and pleasant. Pt SBA GB W, tolerating activity well. Pt reported pain 6/10 throughout shift, functional tester typewriters utilized repositioning and PRN medication. Pt is continent of the bladder. Pt denies any headache/nausea/CP/SOB during shift. Pt has chronic numbness in bilateral hands. Pt tolerating fluids/diet well. Pt does not use call light appropriately and moves to the bathroom quickly. Edge Plugger encouraged slow and steady movements to the bathroom and the importance of using call light to prevent falls. Bed alarm in place. 2 dressings on lower posterior back CDI. Pt appears resting with call light in reach. ?
--- NOTE | 2024-02-29 07:00 | CRLHL7_ITS ---
For Patients: As a result of the Cures Act, medical imaging exams and procedure reports are released immediately into your electronic medical record. You may view this report before your referring provider. If you have questions, please contact your health care provider. INDICATION: Trace left basilar pneumothorax on CT TECHNIQUE: Chest 2 views. COMPARISON: CT chest 02/28/2024 FINDINGS: The heart is normal in size. The pulmonary vasculature is within normal limits. The lungs are clear without focal consolidation, pleural effusion or pneumothorax. The basilar pneumothorax seen on CT is not visualized radiographically. Nerve stimulator device is present. Mild multilevel degenerative changes spine. IMPRESSION: No acute process. Left basilar pneumothorax seen on the recent CT of the chest, if still present is not visualized radiographically. Dictated by Karen Williamson MD @ 02/29/2024 10:50:22 AM Dictated by: Karen Williamson MD @ 02/29/2024 10:50:49 (Electronically Signed)
[2024-02-29 07:46] VITALS: BP 133/77; PULSE 71; RESP 14; TEMP 37.4; O2SAT 94
[2024-02-29] MEDS: AMLODIPINE 5 MG TABLET 2.5 MG PO (08:41)
[2024-02-29] MEDS: polyethylene glycoL 3350 17 GM PACK PO (08:41)
[2024-02-29] MEDS: GABAPENTIN 300 MG CAPSULE PO (08:41)
[2024-02-29] MEDS: METOPROLOL SUCCINATE (XL) 50 MG TAB PO (08:42)
[2024-02-29] MEDS: SODIUM CHLORIDE 0.9 % (FLUSH) 10 ML SYRINGE 5 ML IVF (08:42)
[2024-02-29] MEDS: lisinopriL 20 MG TABLET 40 MG PO (08:42)
[2024-02-29] MEDS: SENNOSIDES/DOCUSATE TABLET 2 TAB PO (08:42)
[2024-02-29 11:22] VITALS: BP 114/65; PULSE 75; RESP 20; TEMP 37; O2SAT 92
--- NOTE | 2024-02-29 11:32 | P.DS_ITS ---
DS: Providers Provider Time Seen by Provider: 08:45 Date Seen: 02/29/24 Date of admission: 02/28/24 13:12 Primary care physician: Norman Porter MD Admitting Clinician: Laura Alford MD Consults: 02/28/24 14:58 Consult to Occupational Therapy [CONS] Routine Comment: Reason(s) for OT Consult:: Evaluate and Treat Any Restrictions?:: No Restrictions Consult to Physical Therapy [CONS] Routine Comment: Reason(s) for PT Consult:: Evaluate and Treat Any Restrictions?:: No Restrictions Attending Physician on discharge: Kasia Sahu MD Date of Discharge: 02/29/24 DS: Diagnosis Discharge Diagnosis (1) Pneumothorax: Status: Acute Problem details: - discovered on Lumbar CT scan when assessing uncontrolled pain, with subsequent CT of chest demonstrating the followin. Trace left basilar pneumothorax. 2. Spinal cord stimulator leads terminate at T7. Small amount of air within the spinal canal at the T5 level. 3. Bilateral noncalcified pulmonary nodules measuring up to 7 mm in the right lower lobe. Recommend chest CT follow-up in 6-12 months to document stability. 4. Nonobstructing right upper pole renal calculus. - Reviewed with [facility] physician in [place] who implanted the spinal stimulator. This is an unusual complication of this procedure. - reviewed with general surgeon, [facility], who indicated that there was no need to proceed with placement of a chest tube at this time and recommend ed overnight observation. - reviewed with patient and son, Tam, who are agreeable with the above stated plan and recommendations. - will need follow-up with his pain clinic physician in time. - 02/28 CXR: No acute process. Left basilar pneumothorax seen on the recent CT of the chest, if still present is not visualized radiographically. Discussed with Dr. Gaston from general surgery who recommended that patient could get f/u film as outpatient Saturday with back clinic or PCP. Discussed with patient and his son, Tam, who were agreeable with this plan. (2) Uncontrolled pain: Status: Acute Problem details: - uncontrolled back pain in back s/p spinal stimulator implant 02/27/24 -CT scan of lumbar spine 02/28/24 demonstrated the followin. Postoperative changes status post epidural stimulator placement with leads entering the spinal canal and thecal sac at the left L1 lamina and coursing along the left lateral aspect of the spinal canal above the visualized [id number]. 2. Incidental note made of mild left paraspinous and left sided subpleural air commensurate with a small left-sided pneumothorax with minimal air tracking along the left psoas muscle. Additional trace air is seen within the intrathecal space and left lateral epidural space at the L1-L2 level. 3. Otherwise stable degenerative changes of the lumbar spine worst at the L3-L4 and L4-L5 levels without evidence of significant postprocedural spinal canal narrowing or epidural hemorrhage. - continue with increased dose of the hydrocodone 5/acetaminophen 325, 2 tabs p.o. q.4 hours p.r.n. for pain for now. Monitor his response to this. - will need follow-up with his pain clinic clinician in time. - 02/28 Improving. Back pain back to usual level (while pain medicine is on board). He got sleep last night, which he thinks helped a lot. PT/OT worked with patient today and he was able to ambulate independently. Son, Tam is going to stay with him through the weekend. (3) Chronic low back pain: Status: Chronic Problem details: - spinal stenosis with pain - status [facility] [place] ([place]) Chronic neck pain: Status: Chronic Problem details: - spinal stenosis with radiculopathy and pain - status post spinal stimulator [facility] [place] ([place]) Constipation: Status: Acute Problem details: - acute on chronic with no bowel movement for 3 days prior to presentation to [facility] on 02/28/2024 - initiated scheduled MiraLax as well as scheduled senna tabs. (6) Pulmonary nodules: Status: Acute Problem details: - noted on CT scan of chest 02/28/2024: . Bilateral noncalcified pulmonary nodules measuring up to 7 mm in the right lower lobe. Recommend chest CT follow-up in 6-12 months to document stability. (7) Renal calculi: Status: Acute Problem details: - noted on CT scan of chest on 02/28/2024: . Nonobstructing right upper pole renal calculus. DS: Summary Hospital Course Hospital Course: Per H&P: Marino Sims is a 84 year old man with known chronic low back pain and cervical radiculopathy presents with worsened back pain and leg pain status post spinal stimulator implant yesterday, 02/27/2024. Underwent a trial of an external stimulator device with a modicum of benefit. After her health insurance approval, he opted to proceed with permanent spinal stimulation implantation which was undertaken yesterday. Reportedly he had had pain after the implantation that was more than what he ordinarily experiences. Nevertheless he was discharged home with prescription for hydrocodone 5/acetaminophen 325, 1/2-1 tab p.o. q.4 hours p.r.n. for pain. He attempted utilizing this without much relief. This morning the pain was more intense than what he has previously experienced. He and his son, Tam, opted to come into the hospital for further assessment at that time. In the course of the evaluation in the [facility] Emergency Department, CT scan of the lumbar spine were obtained without administration of IV contrast. The findings from this exam include the followin. Postoperative changes status post epidural stimulator placement with leads entering the spinal canal and thecal sac at the left L1 lamina and coursing along the left lateral aspect of the spinal canal above the visualized [id number]. 2. Incidental note made of mild left paraspinous and left sided subpleural air commensurate with a small left-sided pneumothorax with minimal air tracking along the left psoas muscle. Additional trace air is seen within the intrathecal space and left lateral epidural space at the L1-L2 level. 3. Otherwise stable degenerative changes of the lumbar spine worst at the L3-L4 and L4-L5 levels without evidence of significant postprocedural spinal canal narrowing or epidural hemorrhage. Call is placed to the [facility] in [place] worry he had the stimulator implanted. These findings were discussed. Pain specialist indicated that they have not had a pneumothorax with implantation of spinal stimulator in the past and that this is unusual. Discussion was also held with our general surgeon at [facility], who recommended that given the small size of the pneumothorax that we admit the patient for observation and that there is no indication to proceed with any other stabilizing procedures. Chest x-ray was obtained subsequently and did not demonstrate the presence of the small pneumothorax. CT scan of the chest was undertaken read demonstrating the known left pneumothorax seen on the CT scan and not seen on the chest x-ray. In the emergency department patient was given 2 tabs of the hydrocodone 5/acetaminophen 325 and noticed significant amount of pain relief. Overnight patient has been taking hydrocodone/acetaminophen 5/325, 2 tab about every 4 hours regularly and was able to participate in therapies this morning and feels that he is back to his baseline level of back pain as it was prior to the surgery, as long as he is able to take the pain medication in a timely manner. Chest x-ray today also showed no presence of small pneumothorax. I discussed this with Dr. Gaston from General surgery who noted that is unusual for pneumothorax to be in the basal area since air usually finds its way superiorly and thought that there was a chance this was a bleb seen yesterday. She agreed that he could be discharged today and have follow-up with a chest x- ray on Saturday either with the pain clinic or primary care provider. Blayne and his son, Tam, were comfortable with this plan and with him going home today. Note to primary care provider: He will need to follow-up CT in 6-12 months to document stability of pulmonary nodules seen incidentally on CT chest. Time Spent with Patient Time attestation: Total time spent providing and/or coordinating discharge services: Exam Narrative: Exam Narrative: General: No acute distress. Patient was resting comfortably in the bedside chair this morning when I 1st saw him. When I went in later to talk with him and his son, he was resting comfortably in the bed. Awake, alert, oriented x3. No pallor. No jaundice. Oropharynx: Clear. Mucous membranes moist. Cardiovascular: Regular rate and rhythm. No murmurs, gallops, or rubs. Respiratory: Clear to auscultation bilaterally. No wheezes or crackles. Abdomen: Bowel sounds present. Soft, nondistended, nontender. Back: Bandage on lumbar spine has a pea-sized spot of dried blood inferiorly. His son looked at that with me and noted that that was present yesterday and is unchanged. Nontender to palpation. Extremities: No pedal edema. Const: Vital Signs, click to edit/add: Vital Signs - 24 hr 02/28/24 13:09 02/28/24 13:24 02/28/24 14:20 Temperature 99.2 F Pulse Rate [Pulse Oximeter] 71 73 Respiratory Rate 16 20 20 Blood Pressure [Le ft Arm] 165/102 H Blood Pressure [Ri ght Arm] Blood Pressure [Ri ght Upper Arm] 139/90 H Pulse Oximetry 95 95 94 Oxygen Delivery Me thod Room Air Room Air Room Air 02/28/24 15:00 02/28/24 15:00 02/28/24 19:00 Temperature 98.4 F 98.7 F Pulse Rate [Pulse Oximeter] 71 79 Respiratory Rate 18 16 Blood Pressure [Le ft Arm] 186/97 H 200/105 H Blood Pressure [Ri ght Arm] Blood Pressure [Ri ght Upper Arm] Pulse Oximetry 95 95 96 Oxygen Delivery Me thod Room Air Room Air Room Air 02/28/24 22:48 02/28/24 22:48 02/29/24 03:11 Temperature 98.5 F 98.5 F Pulse Rate [Pulse Oximeter] 68 75 Respiratory Rate 14 14 20 Blood Pressure [Le ft Arm] 162/83 H Blood Pressure [Ri ght Arm] 133/80 Blood Pressure [Ri ght Upper Arm] Pulse Oximetry 96 96 96 Oxygen Delivery Me thod Room Air Room Air Room Air 02/29/24 07:46 02/29/24 07:46 02/29/24 07:46 Temperature 99.3 F Pulse Rate [Pulse Oximeter] 71 71 Respiratory Rate 14 14 14 Blood Pressure [Le ft Arm] 133/77 Blood Pressure [Ri ght Arm] Blood Pressure [Ri ght Upper Arm] Pulse Oximetry 94 94 Oxygen Delivery Me thod Room Air Room Air 02/29/24 11:22 Temperature 98.6 F Pulse Rate [Pulse Oximeter] 75 Respiratory Rate 20 Blood Pressure [Le ft Arm] 114/65 Blood Pressure [Ri ght Arm] Blood Pressure [Ri ght Upper Arm] Pulse Oximetry 92 Oxygen Delivery Me thod Room Air DS: Data Data Completed and Pending Completed studies during hospitalization: Ordering Physician: Mack Calabrese M.D. Date of Service: 02/28/24 Procedure(s): CT lumbar spine wo con Accession Number(s): [id number] cc: Norman Porter M.D.; Mack Calabrese M.D.~ For Patients: As a result of the Cures Act, medical imaging exams and procedure reports are released immediately into your electronic medical record. You may view this report before your referring provider. If you have questions, please contact your health care provider. Indication: Spinal stimulator placement, increasing pain Technique: Volumetric multidetector CT images of the lumbar spine were obtained without the administration of IV contrast. Comparison: MRI lumbar spine November 28, 2023 Findings: The lumbar vertebral body heights are grossly preserved with extensive endplate Modic and subchondral cystic changes. There is straightening of the normal lumbar lordosis with moderate levo scoliotic deformity of the AP alignment. There is again seen severe multilevel degenerative disc disease with extensive vacuum disc phenomenon, marginal osteophyte formation, subchondral sclerosis and subchondral cystic changes. There is persistent moderate to severe spinal canal narrowing of the L4-L5 and L3-L4 levels. There is no displaced fracture or dislocation. There is postoperative change status post epidural stimulator placement with partial visualization of the pacer pack with minimal subcutaneous emphysema within the superficial paraspinous soft tissues. Grossly, the leads are intact throughout with demonstration of insertion into the thecal sac at the T12-L1 level with demonstration of epidural leads tracking along the left lateral thecal sac. Incidental note is made of moderate subpleural air within the partially visualized left hemidiaphragm likely representing a small left-sided pneumothorax. Additional air tracks along the left psoas muscle. No evidence of obvious epidural fluid. Impression: 1. Postoperative changes status post epidural stimulator placement with leads entering the spinal canal and thecal sac at the left L1 lamina and coursing along the left lateral aspect of the spinal canal above the visualized [id number]. 2. Incidental note made of mild left paraspinous and left sided subpleural air commensurate with a small left-sided pneumothorax with minimal air tracking along the left psoas muscle. Additional trace air is seen within the intrathecal space and left lateral epidural space at the L1-L2 level. 3. Otherwise stable degenerative changes of the lumbar spine worst at the L3-L4 and L4-L5 levels without evidence of significant postprocedural spinal canal narrowing or epidural hemorrhage. Please note that all CT scans at this facility use dose modulation, iterative reconstruction, and/or weight-based dosing when appropriate to reduce radiation dose to as low as reasonably achievable. Dictated by Dieudonne Scott MD @ 02/28/2024 10:28:08 AM (Electronically Signed) Ordering Physician: Mack Calabrese M.D. Date of Service: 02/28/24 Procedure(s): XR chest 1V portable Accession Number(s): [id number] cc: Norman Porter M.D.; Mack Calabrese M.D.~ For Patients: As a result of the Cures Act, medical imaging exams and procedure reports are released immediately into your electronic medical record. You may view this report before your referring provider. If you have questions, please contact your health care provider. Indication: Evaluate for pneumothorax. Technique: One view(s) of the chest. Comparison: Lumbar spine CT from 02/28/2024, 09/20/2021. Findings: Partially visualized spinal cord stimulator leads are present with tip at the T7 level. No pneumothorax seen on prior lumbar spine CT is not apparent radiographically. Cardiomediastinal silhouette is mildly enlarged. Atherosclerotic aortic calcifications. There are streaky opacities in the left lung base favoring subsegmental atelectasis. Possible nodular opacities along the left heart border (measuring 10 mm) and overlying the anterior right 4th rib (measuring 4 mm). No pleural effusion. Impression: 1. Known left pneumothorax seen on recent CT is not visualized radiographically. 2. Mild left basilar subsegmental atelectasis. 3. Two possible pulmonary nodules. Recommend nonemergent chest CT for further evaluation. Dictated by Cata Bynum MD @ 02/28/2024 11:13:53 AM (Electronically Signed) Ordering Physician: Mack Calabrese M.D. Date of Service: 02/28/24 Procedure(s): CT chest w con Accession Number(s): [id number] cc: Norman Porter M.D.; Mack Calabrese M.D.~ For Patients: As a result of the Cures Act, medical imaging exams and procedure reports are released immediately into your electronic medical record. You may view this report before your referring provider. If you have questions, please contact your health care provider. Indication: Evaluate pneumothorax. Technique: CT of the chest was performed following the administration of 75 mL Isovue 370. Comparison: Same day chest radiograph and lumbar spine CT. Findings: Lungs and pleura: Trace left basilar pneumothorax. No pleural effusion. No right pneumothorax. Mild dependent atelectasis in the upper and lower lobes. Subpleural right lower lobe pulmonary nodule measuring 7 mm. Few additional smaller right lower lobe pulmonary nodules. Left upper lobe calcified granuloma. Subpleural lingular nodule measures 5 mm. Heart and great vessels: The heart is normal in size. No pericardial effusion. Mildly enlarged main pulmonary artery, which can be seen in the setting of pulmonary artery hypertension. Moderate atherosclerotic aortic, coronary artery calcifications. Aortic valvular calcifications.. Thyroid and mediastinum: Thyroid is normal. No mediastinal lymphadenopathy by size criteria. Chest wall: Unremarkable. Visualized upper abdomen: 3 mm right upper pole nonobstructing renal calculus. Bones: Spinal cord stimulator leads are seen within the lower thoracic spine, tips at the T7 level. A small amount of gas is seen within the spinal canal at the T5 level. Multilevel degenerative disc disease. No acute fracture. Impression: 1. Trace left basilar pneumothorax. 2. Spinal cord stimulator leads terminate at T7. Small amount of air within the spinal canal at the T5 level. 3. Bilateral noncalcified pulmonary nodules measuring up to 7 mm in the right lower lobe. Recommend chest CT follow-up in 6-12 months to document stability. 4. Nonobstructing right upper pole renal calculus. Please note that all CT scans at this facility use dose modulation, iterative reconstruction, and/or weight-based dosing when appropriate to reduce radiation dose to as low as reasonably achievable. Dictated by Cata Bynum MD @ 02/28/2024 1:00:50 PM (Electronically Signed) Ordering Physician: Aaron Max M.D. Date of Service: 02/29/24 Procedure(s): XR chest 2V Accession Number(s): [id number] cc: Norman Porter M.D.; Aaron Max M.D.~ For Patients: As a result of the Century Cures Act, medical imaging exams and procedure reports are released immediately into your electronic medical record. You may view this report before your referring provider. If you have questions, please contact your health care provider. INDICATION: Trace left basilar pneumothorax on CT TECHNIQUE: Chest 2 views. COMPARISON: CT chest 02/28/2024 FINDINGS: The heart is normal in size. The pulmonary vasculature is within normal limits. The lungs are clear without focal consolidation, pleural effusion or pneumothorax. The basilar pneumothorax seen on CT is not visualized radiographically. Nerve stimulator device is present. Mild multilevel degenerative changes spine. IMPRESSION: No acute process. Left basilar pneumothorax seen on the recent CT of the chest, if still present is not visualized radiographically. Dictated by Karen Williamson MD @ 02/29/2024 10:50:22 AM Dictated by: Karen Williamson MD @ 02/29/2024 10:50:49 (Electronically Signed) Discharge Plan Discharge Disposition: Home, Self-Care Date of Admission: 02/28/24 13:12 Attending Provider on Discharge: Kasia Sahu Primary Care Provider: Norman Porter Condition: Improved Anticipated Discharge Date/Time: 02/29/24 11:45 Discharge Medications: New polyethylene glycol 3350 [Miralax] 17 gram Powder In Packet 17 g PO DAILY Qty: 30 0RF hydrocodone-acetaminophen 5-325 mg Tablet 2 tab PO Q4H MDD 50 PRNQty: 30 0RF sennosides-docusate sodium [Stool Softener-Laxative] 8.6-50 mg Tablet 2 tab PO BID Qty: 120 0RF Continued gabapentin 300 mg capsule 300 mg PO TID Qty: 270 3RF lisinopril 40 mg tablet 40 mg PO DAILY Qty: 90 3RF metoprolol succinate 50 mg tablet extended release 24 hr 50 mg PO DAILY Qty: 90 3RF omeprazole 20 mg capsule,delayed release(DR/EC) 20 mg PO DAILY Qty: 90 3RF cephalexin 500 mg capsule 500 mg PO Q6H amlodipine 2.5 mg tablet 2.5 mg PO DAILY lovastatin 20 mg tablet 20 mg PO HS Discontinued hydrocodone-acetaminophen 5-325 mg tablet 0.5 - 1 tab PO Q4H PRN (Reason: pain) Discharge Orders: Discharge Order (Routine); Ordered 02/29/24 Ordered By: Kasia Sahu Additional Instructions: Pain clinic Saturday if possible with chest x-ray to follow-up recent small left pneumothorax. Activity Level: Activity as Tolerated Discharge Diet: Regular Follow Up Appointments: Norman Porter MD [Primary Care Provider] - Forms: [employer] Info Instructions
--- NOTE | 2024-02-29 13:08 | PC.NURSE ---
Discharge: Patient pleasant and cooperative. Patient vitally stable, lungs diminished, BS WNL, IV removed, catheter intact. Patient always rates pain 5-6/10, norco 2 tabs given once. Patient SBA/walker. Patient tolerating regular diet, urinating well, no BM. Patient signed belongs sheet and discharge from. All questions answered. Lower back dressings x2 C/D/I, one dressing replaced. Patient left the floor by wheelchair to home with son at 1305.
== END 2024-02-29 13:05 | disposition home or self-care (01) ==
LOC: ED 12:41 → MEDSURG 17:11
PROVIDERS: Admitting Provider Family Medicine; Emergency Provider Family Medicine; PCP Family Medicine; Visit Provider Family Medicine
DX: J93.9 Pneumothorax, unspecified (principal); G89.29 Other chronic pain; M54.50 Low back pain, unspecified; R91.8 Other nonspecific abnormal finding of lung field; M51.369 Other intervertebral disc degeneration, lumbar region without mention of lumbar back pain or lower extremity pain; M48.061 Spinal stenosis, lumbar region without neurogenic claudication; N20.0 Calculus of kidney; R51.9 Headache, unspecified; M54.2 Cervicalgia; M79.605 Pain in left leg; M79.604 Pain in right leg; K59.00 Constipation, unspecified; I10 Essential (primary) hypertension; I25.10 Atherosclerotic heart disease of native coronary artery without angina pectoris; K21.9 Gastro-esophageal reflux disease without esophagitis; E78.5 Hyperlipidemia, unspecified; Z72.0 Tobacco use; Z87.2 Personal history of diseases of the skin and subcutaneous tissue; Z87.19 Personal history of other diseases of the digestive system; Z85.46 Personal history of malignant neoplasm of prostate; Z90.79 Acquired absence of other genital organ(s); Z96.89 Presence of other specified functional implants; Z98.890 Other specified postprocedural states
CPT/HCPCS: 71045; 71046; 71260; 72131; 94761; 96374; 97116; 97161; 97165; 97535; 99285; A9270; G0378; J1171; Q9967

== ENCOUNTER 2024-05-04 10:20 | Outpatient (CLI) | payer MEDICARE, BC, SELFPAY | END 2024-05-04 10:21 | disposition home or self-care (01) | LOC: NFLDREF 05-05 07:28 | PROVIDERS: PCP Family Medicine; Referring Provider Family Medicine; Visit Provider Family Medicine | DX: I10 Essential (primary) hypertension (principal); E78.5 Hyperlipidemia, unspecified; Z12.5 Encounter for screening for malignant neoplasm of prostate | CPT/HCPCS: 80053; 80061; G0103 ==

== ENCOUNTER 2024-07-17 13:15 | Outpatient (RCR) | payer MEDICARE, BC, SELFPAY ==
--- NOTE | 2024-06-30 16:19 | OT.OPOE ---
OT Outpatient Ortho Eval OT Outpatient Ortho Eval* Start: 06/30/24 13:16 Freq: Status: Active Protocol: Document 06/30/24 13:16 AMB (Rec: 06/30/24 16:14 AMB [id number]) E-signed By Shannen Gan, OTR/L, CLT, WAD LUBRICATOR OT OP Ortho Eval Details Complexity Complexity Medium Insurance Information Insurance Information Medicare B Outpatient History/Precautions Current Condition/Medical Diagnosis Referring Provider Dr Segal Medical Diagnoses G56.23 Lesion of UN in BUE Treatment Diagnosis R53.1 Weakness BUE M25.649 Stiffness BUE hands Date of Onset Chronic ~ 1 year Medical Conditions HTN,CA,Arthritis Other Conditions Spinal Stimulator placed on due to chronic LB pain. PMH (copied from ortho chart): Active Problems (Updated 05/04 @ 11:46 by Norman Porter MD) Ulnar neuropathy of both upper extremities (Acute) G56.23 - Lesion of ulnar nerve , bilateral upper limbs (ICD- 10) DNR (do not resuscitate) ( Acute) Z66 - Do not resuscitate (ICD- 10) S/P insertion of spinal cord stimulator (Acute) Z96.89 - Presence of other specified functional implants (ICD-10) Renal calculi (Acute) - noted on CT scan of chest on 02/28/2024: . Nonobstructing right upper pole renal calculus. N20.0 - Calculus of kidney ( ICD-10) Pulmonary nodules (Acute) - noted on CT scan of chest : . Bilateral noncalcified pulmonary nodules measuring up to 7 mm in the right lower lobe. Recommend chest CT follow-up in 6-12 months to document stability. R91.8 - Other nonspecific abnormal finding of lung field (ICD-10) Constipation (Acute) - acute on chronic with no bowel movement for 3 days prior to presentation to [facility] on 2023 - initiated scheduled MiraLax as well as scheduled senna tabs. K59.00 - Constipation, unspecified (ICD-10) Tobacco use (Acute) Z72.0 - Tobacco use (ICD-10) Spinal stenosis of lumbar region (Acute) M48.061 - Spinal stenosis, lumbar region without neurogenic claudication (ICD- 10) Small bowel obstruction (Acute ) K56.609 - Unspecified intestinal obstruction, unspecified as to partial versus complete obstruction ( ICD-10) Partial small bowel obstruction (Acute) K56.600 - Partial intestinal obstruction, unspecified as to cause (ICD-10) Mastoiditis (Acute) H70.90 - Unspecified mastoiditis, unspecified ear ( ICD-10) Malignant neoplasm of prostate (Acute) C61 - Malignant neoplasm of prostate (ICD-10) Hypertension (Acute) I10 - Essential (primary) hypertension (ICD-10) Hyperlipidemia (Acute) E78.5 - Hyperlipidemia, unspecified (ICD-10) 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 (Acute) M51.26 - Other intervertebral disc displacement, lumbar region (ICD-10) M51.36 - Other intervertebral disc degeneration, lumbar region (ICD-10) GERD (gastroesophageal reflux disease) (Acute) K21.9 - Gastro-esophageal reflux disease without esophagitis (ICD-10) Fasting hyperglycemia (Acute) R73.01 - Impaired fasting glucose (ICD-10) 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 (Acute) M50.90 - Cervical disc disorder, unspecified, unspecified cervical region ( ICD-10) Coronary artery disease (Acute ) I25.10 - Atherosclerotic heart disease of [place] coronary artery without angina pectoris (ICD-10) Coronary artery disease (Acute ) I25.10 - Atherosclerotic heart disease of [place] coronary artery without angina pectoris (ICD-10) Colon polyp (Acute) K63.5 - Polyp of colon (ICD-10 ) Chronic neck pain (Chronic) - spinal stenosis with radiculopathy and pain - status [facility] [place] M[facility].2 - Cervicalgia (ICD-10) G89.29 - Other chronic pain ( ICD-10) Chronic low back pain (Chronic ) - spinal stenosis with pain - status post spinal stimulator implant [facility] [place] M54.50 - Low back pain, unspecified (ICD-10) G89.29 - Other chronic pain ( ICD-10) Acute exacerbation of chronic low back pain (Acute) M54.50 - Low back pain, unspecified (ICD-10) G89.29 - Other chronic pain ( ICD-10) Medical History (Updated 05/04 @ 11:46 by Norman Porter MD) Chronic low back pain M54.50 - Low back pain, unspecified (ICD-10) G89.29 - Other chronic pain ( ICD-10) Chronic neck pain M54.2 - Cervicalgia (ICD-10) G89.29 - Other chronic pain ( ICD-10) Colon polyp K63.5 - Polyp of colon (ICD-10 ) Coronary artery disease I25.10 - Atherosclerotic heart disease of [place] coronary artery without angina pectoris (ICD-10) 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 M50.90 - Cervical disc disorder, unspecified, unspecified cervical region ( ICD-10) Fasting hyperglycemia R73.01 - Impaired fasting glucose (ICD-10) GERD (gastroesophageal reflux disease) K21.9 - Gastro-esophageal reflux disease without esophagitis (ICD-10) 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 M51.26 - Other intervertebral disc displacement, lumbar region (ICD-10) M51.36 - Other intervertebral disc degeneration, lumbar region (ICD-10) Hyperlipidemia E78.5 - Hyperlipidemia, unspecified (ICD-10) Hypertension I10 - Essential (primary) hypertension (ICD-10) Malignant neoplasm of prostate C61 - Malignant neoplasm of prostate (ICD-10) Mastoiditis H70.90 - Unspecified mastoiditis, unspecified ear ( ICD-10) Partial small bowel obstruction K56.600 - Partial intestinal obstruction, unspecified as to cause (ICD-10) Small bowel obstruction K56.609 - Unspecified intestinal obstruction, unspecified as to partial versus complete obstruction ( ICD-10) History of pilonidal cyst Z87.2 - Personal history of diseases of the skin and subcutaneous tissue (ICD-10) History of malignant neoplasm of prostate Z85.46 - Personal history of malignant neoplasm of prostate (ICD-10) Surgical History (Updated @ 13:21 by Jammie Cornell) History of bladder surgery Z98.890 - Other specified postprocedural states (ICD-10) History of phacoemulsification of cataract of both eyes with intraocular lens implantation Z98.41 - Cataract extraction status, right eye (ICD-10) Z98.42 - Cataract extraction status, left eye (ICD-10) Z96.1 - Presence of intraocular lens (ICD-10) Status post prostatectomy Z90.79 - Acquired absence of other genital organ(s) (ICD-10 ) History of right inguinal hernia repair Z98.890 - Other specified postprocedural states (ICD-10) Z87.19 - Personal history of other diseases of the digestive system (ICD-10) History of hernia repair Z98.890 - Other specified postprocedural states (ICD-10) Z87.19 - Personal history of other diseases of the digestive system (ICD-10) Home Medications - Last Reconciled 06/16/24 by Krystal Contreras ~ AGENCY DIRECTOR, AGENCY DIRECTOR acetaminophen (Tylenol Extra Strength) 1,000 mg PO QID PRN amlodipine 2.5 mg PO DAILY gabapentin 300 mg PO TID lisinopril 40 mg PO DAILY lovastatin 20 mg PO HS metoprolol succinate ER 50 mg PO DAILY omeprazole 20 mg PO DAILY polyethylene glycol 3350 ( Miralax) 17 grams PO DAILY sennosides-docusate sodium 8.6 -50 mg (Stool Softener- Laxative) 2 tabs PO BID Medical/Functional History Medical History Reviewed Yes Prior Level of Function/Mobility Pt has had numbness in BUE RF and SF x ~ 1 year. Pt lives alone, he has been for 5 years, he has 3 children, his son Tam helps him out prn. Social History Hobbies Enjoys golfing Fitness Sedentary due to back pain / impaired balance / weakness Ortho Subjective Subjective Subjective Pt states he's been having pain in both of his elbow for 6 months to a year, denies any injury but states he does sit at his computer for 4-6 hours per day with his elbows bent and resting on the table. Pt states the pain in his hands is 10/10, described as sometimes sharp, sometimes dull and tingling. Pt states he really struggles to get any relief; he has tried heat and cold, Tylenol, Ibuprofen, nothing seems to help. Pt states he uses his elbows quite heavily to reposition himself in bed, states he actually wore a hole in his elbow. Really struggles to roll over and to transfer from sit<>supine. Pt states he does have a recliner that is more comfortable for his back, but he likes to use his computer as this is one of the few things that he still CAN do, and it occupies his time. Pt states he is pretty sure that due to his back pain and fear of falling, he will not be able to golf this next summer, and this was his favorite thing to look forward to. Pt has a son that visits periodically and takes him out for dinner, other than this, he really doesn't get out much . Pt states he actually fell 3 x in one day last week due to reaching for things and just falling over. Pt has to go down steps in his home and he is very fearful of falling down the steps, he is considering putting in a stair lift. Pt does not have life alert, thinking about it. Discussed potential of moving to [facility] or senior housing, pt has thought about it but [place] golfers and wildlife and states he enjoys that as well. Also, pt's daughter is going to buy his house once he is no longer there so he would really like to keep it in the family. Range of Motion and Strength Shoulder Range of Motion and Strength Shoulder Range of Motion and Strength BUE shoulders WFL but generalized weakness throughout all motions = 4-/5 Elbow/Forearm Range of Motion and Strength Elbow/Forearm Range of Motion and BUE elbows WFL but generalized Strength weakness throughout flexion and extension as well as pronation and supination = 4-/ 5 Wrist Range of Motion and Strength Wrist Range of Motion and Strength BUE wrist WFL but generalized weakness throughout = 4-/5 Hand/Finger/Thumb Range of Motion and Strength Hand/Finger/Thumb Range of Motion and BUE hand AROM WFL throughout, Strength generalized weakness throughout = 4-/5 Hand Pinch/Adjunct Latin Professor Strength Hand Pinch/Adjunct Latin Professor Strength Hand Pinch/Adjunct Latin Professor Strength Left Hand,Right Hand Left Hand Adjunct Latin Professor Strength Position 1 in Elbow 40 Flexion (lbs) Lateral Pinch Strength (lbs) 18 Three Point Pinch (lbs) 10 Right Hand Adjunct Latin Professor Strength Position 1 in Elbow 38 Flexion (lbs) Lateral Pinch Strength (lbs) 18 Three Point Pinch (lbs) 13 Comments Comments left 59.6 right 66.4 OT Objective Data Hand Hand Dominance Left Observations/Posture/Limb Appearance Objective Observations 06/30/24 Note intrinsic atrophy in BUE hands, especially first dorsal compartment. Sensation Sensation Assessment Summary Comments 06/30/14 Completed modified monofilament testing of digit tips of BUE as follows: RUE: TH:2.83 IF:2.83 MF:3.61 RF:4.31 SF:4.31 LUE: TH:2.83 IF:2.83 MF:3.61 RF: unable SF:unable Upper Extremity Special Tests Median Nerve-Carpal Tunnel Wrist Phalen Test Negative Left Wrist Tinel Test Negative Left Durkan's Test Negative Left Ulnar Nerve Froment's Sign Negative Left,Negative Right Upper Extremity Special Tests Comments Comments Bilateral UE: No bruising or discoloration, hands and fingers are warm, normal capillary refill, negative Tinel's at cubital tunnel BUE, visible mm atrophy in BUE intrinsics TTP and (+) Tinnels at cubital tunnel of BUE. Spurling's Test: SB to Left / rot to right with over-pressure: Neg SB to right / rot to left with over-pressure: Neg OT Problems Problems Problems Decreased Strength,Decreased Dexterity,Decreased Coordination,Sensory Sensitivity,Gripping,Pinching Problems Comments Difficulty with bed mobility and transitional movements that require use of his UEs. Other Problems Writing,Opening Containers, Sleeping Patient Potential Good Assessment Assessment Assessment He is a pleasant 84yr old male . Presents with generalized weakness throughout BUE but especially in hands / ulnar digits. He states he has numbness and pain in the ulnar 2 digits. The pain began about 1 year ago. Left hand pain is greater than right. He notes the ulnar 2 digits don 't work. The patient has tried ice, Tylenol/oral NSAIDs , rest, activity modification all with minimal and non- lasting relief. He did have an operation near the C7 about 30 years ago. He notes he his having motor function issues as well, such as dropping items and gripping/squeezing. Pt has identified additional concerns in his home, he has had several recent falls and is fearful of falling down his steps. Pt does not have a medic alert button but is open to considering. Currently, pt is struggling with numbness and pain in his hands. Pt is having difficulty grasping and carrying items, tends to drop things, states he can't tie his shoes, struggles greatly with buttons and tends to spill liquids. Pt will benefit from skilled OT intervention to address BUE hand paresthesia and weakness in order to restore full, pain- free use of BUE as well as to decrease risk of injury. Pt will also benefit from ADL / self care to address adaptive techniques and equipment that may improve generalized safety in his home as well as decrease pressure on UN to promote healing. Occupational Therapy Treatment Plan - OP Potential Rehabilitation Potential Good Set Goals Goals Set with Patient Yes Goals Goals 1. Pt will be independent and compliant with HEP in order to resume full, pain-free use of BUE. 3 weeks 2. Pt will demonstrate improved performance on monofilament testing in BUE in order to improve ability to grasp and hold objects, tie his shoes, and button buttons. 6 weeks 3. Pt will demonstrate pain- free operations management professionals and pinch strength comparable to average for age and gender in order to improve functional grasp, hold, reach , and lifting ability needed to complete self-care, leisure tasks, and mobility tasks such as rolling over in bed and transitioning from supine to sit. 8 weeks. 4. Pt will identify 3-4 adaptive techniques or equipment that will kyler t with ergonomic and safety adaptations in his home to reduce risk for injury and worsening of his current condition of UN compression. 8 weeks. Treatment Plan Treatment Plan Evaluation,Joint Mobilization, Manual Therapy,Splinting, Ultrasound,Therapeutic Exercise,Therapeutic Activities,Self Care/Home Management,Education, Neuromuscular Reeducation Certification Certification Statement I Certify That: Therapy Services Provided, Therapy Plan Established, Therapy Plan Reviewed Certification Information Clinic ID # [id number] Initial Certification Date 06/30/24 Recertification Due Date 09/28/24 Provider Signature Required Yes Provider Signature Shows Agreement With POC & Medical Necessity Physician NPI Number Write NPI# Here Physician Comment/Change Comment or Changes Physician Signature & Date Requested Please Sign/Date Here
== END 2024-11-14 23:59 | disposition home or self-care (01) ==
PROVIDERS: PCP Family Medicine; Visit Provider Orthopaedic Surgery Sports Medicine
DX: G56.23 Lesion of ulnar nerve, bilateral upper limbs (principal); Z51.89 Encounter for other specified aftercare
CPT/HCPCS: 97035; 97110; 97140; 97166; 97535; X5282

== ENCOUNTER 2024-09-01 10:51 | Outpatient (CLI) | payer MEDICARE, BC, SELFPAY ==
--- NOTE | 2024-09-01 11:00 | CRLHL7_ITS ---
For Patients: As a result of the Century Cures Act, medical imaging exams and procedure reports are released immediately into your electronic medical record. You may view this report before your referring provider. If you have questions, please contact your health care provider. Indication: Pulmonary nodule. Technique: Noncontrast CT images of the chest. Comparison: CT chest 02/28/2024. Findings: Stable 8 mm solid subpleural nodule right lung base (series 2, image 83). Interval resolution of a lingular nodule. No new pulmonary nodules. No focal consolidation, pleural effusion, or pneumothorax. Calcified granuloma left upper lobe. Heart size is normal. No pericardial effusion. Coronary artery atherosclerotic calcifications. No mediastinal or hilar lymphadenopathy. Nonobstructing right renal calculus. Spinal stimulator lead terminates in the mid dorsal thoracic canal. Multilevel thoracic spondylosis. No aggressive osseous lesions. Impression: Stable right lower lobe pulmonary nodule. No new pulmonary nodules. No acute abnormality in the chest. Please note that all CT scans at this facility use dose modulation, iterative reconstruction, and/or weight-based dosing when appropriate to reduce radiation dose to as low as reasonably achievable. Dictated by Skip Saeed MD @ 09/01/2024 2:36:17 PM (Electronically Signed)
== END 2024-09-01 10:52 | disposition home or self-care (01) ==
LOC: CT 10:51
PROVIDERS: PCP Family Medicine; Visit Provider Family Medicine
DX: R91.8 Other nonspecific abnormal finding of lung field (principal)
CPT/HCPCS: 71250

== ENCOUNTER 2024-09-30 12:11 | Emergency (ER) | payer MEDICARE, BC, SELFPAY ==
--- OUTSIDE RECORDS SUMMARY | 2024-09-30 12:13 | XMS_ITS | Encounter Summary ---
Author Organization [facility] Address [address] [place] [address] Care Team Providers Care Propulsion Generator Repairer Name Role Phone Unavailable Primary Care Provider Unavailabl e Encounter Details Date Type Department Care Team (Late st Contact Info) Description 04/09/2014 Historical Ophthalmology RST OPH Bhakti Castellanos M.D. [address] [place] [address] Social History Tobacco Use Types Packs/Day Years Used Date Smoking Tobacco: Never Assessed Sex and Gender Information Value Date Recorded Sex Assigned at Male 12/26/2017 9:22 AM CDT Legal Sex Male 7:44 PM MAILER APPRENTICE Gender Identity Male 12/26/2017 9:22 AM CDT Sexual Orientation Straight 05/26/2020 11 :47 AM MAILER APPRENTICE documented as of this encounter Progress Notes * Bhakti Castellanos M.D. - 04/09/2014 8:41 AM CST Eye General CHIEF COMPLAINT Large floater in left eye, possible tear in right eye. HISTORY OF PRESENT ILLNESS Two days ago, , pt noticed a large floater in left eye. Pt saw flashes through out day yesterday, not seeing flashes today. Pt now seeing cobweb, which moves around. Pt denies eye pain. Pt says vision stable. LAD: New floater in left eye x 2 days. Flashes yesterday but no flashes anymore. No changes in vision, photophobia, eye pain, eye redness, itching, or excess tearing. Patient reports that an outside insurance administrative assistant found a tear in his RIGHT eye. IMPRESSION / REPORT / PLAN #1 Posterior vitreous detachment, left eye -Multiple dot hemes found. Patient to return in 7-10 days. -PVD with clear Domínguez ring and no tears. -Patient instructed to return if flashing lights lasting more than 15 minutes, new/worsening floaters, curtain coming over vision, sudden loss of vision, or other visual disturbance. #2 Small tear, right eye -Risks, benefits, and alternatives of laser retinopexy discussed. Patient agrees to proceed. Consent signed. -RTC 1 week. 16:20 Addendum MHM Mr. Streeter was consented for laser barricade in the RIGHT eye during his appointment with Dr. Castellanos. We discussed that he would wait in our lobby so the laser could be performed during lunch. Less than an hour after seeing him, I was informed that he had left to see his , who is apparentlyhospitalized. He told the desk staff that he wanted to cancel today's procedure. I asked that he becontacted for further discussion, or to possibly come back later this afternoon for laser retinopexy. As of 15:04, he was unreachable by Rahel Alford. DIAGNOSIS #1 Posterior vitreous detachment, left eye #2 Small tear, right eye CDM Reports - EYEGEN Id: [id number] Status: Fnl documented in this encounter Plan of Treatment Not on file documented as of this encounter Visit Diagnoses Not on filedocumented in this encounter
--- OUTSIDE RECORDS SUMMARY | 2024-09-30 12:13 | XMS_ITS | Continuity of Care Document ---
Author Organization [facility] Address [address] [place] [id number] Care Team Providers Care Education Administrative Assistant Name Role Phone Ramirez Fox CRNA Unavailable Unavailable Procedures Procedure Date Percutaneous Image guided neuromodulatio n or intra ANESTH, HEAD/NECK/PTRUNK Percutaneous Image guided neuromodulatio n or intra Advance Directives Directive Yes / No Effective Date File Name No Information Encounters Encounter Description Practice Location Reason(s) For Visit Diagnoses Date Provider Providers Copied on Encounter [facility], [address] [place] [address], [id number], [facility] No Information 4 Ruddy Guzmán. [address] [place] [address], [id number] , . tel: [phone] Referring Provider: Piter Weaver, [address] [place] [address], [id number] . tel:[phone] [facility], [address] [place] [address], [id number], [facility] No Information 4 Jonathan Jameson. [address] [place] [address], [id number] , . tel: [phone] Referring Provider: Jessica Engle, [address] [place], [address] . tel:[phone] [facility], [address] [place] [address] [place], [id number], [place] [facility] No Information 4 Ruddy Guzmán. [address] [facility], [place], [place], [id number] , . tel:[phone] Referring Provider: Jessica Engle, [address] [facility] [place], [address] . tel:[phone] Family History Family Member Type Diagnosis Age At Onset No Information Payers Payer name Insurance type Covered libertarian ID Authormisaela shannon(s) Medicare [id number] Blue Cross Supplement [id number] Social History Type Description Quantity Date Captured Comments Sex Male Smoking Status No Information Chief Complaint And Reason For Visit No Information Reason For Referral Reason For Referral No Information History Of Present Illness Encounter Date Complaint History Of Prese nt Illness No Information Functional Status Date Functional Assessmen t No Information Instructions Date Instruction Additional Infor mation No Information Assessments Type Assessment Date No Information Patient Care Teams Name Effective Dates (start - stop) Status Members No Information
--- OUTSIDE RECORDS SUMMARY | 2024-09-30 12:13 | XMS_ITS | Clinical Summary ---
Author Organization [facility] Address [address] , [address] [place] [address] Phone Care Team Providers Care Second Baker Name Role Phone [facility] Unavailable Unava ilable Conditions or Problems Problem Name Problem Code Onset Date Status Entry Date Provider Comment Standard Description Annotate Arm pain, right 087888427 (SNOMED CT) Active Varun Bustos MD Pain in right arm Arm pain, left 087687508 (SNOMED CT) Active Varun Bustos MD Pain in left arm Hand numbness 922453962 (SNOMED CT) Active Varun Bustos MD Numbness of hand Medications No information available. Medications Administered No information available. Allergies, Adverse Reactions, Alerts No information available. Results Date Name Value Unit Range Flag Description Internal Other: Authorizatio n - OBS AUTHBENEFIT Yes Authoriza tion: Assignment of Benefits and Payment Agreement AUTHVMEMTM Yes Authorizat ion: Authorization for [facility] to leave messages, voicemail, send text messages, send emails AUTHRELHCARE Yes Authoriz ation: Release/Retrieval of Information to/from Healthcare Facilities, Pharmacy Benefit Payers and Providers ROIAUTHOTHER Yes Authoriz ation: Release of Information - Authorize Others/Insurance - Payment and Healthcare Operations [email or web address] Yes Authoriza tion: Release of Information - Authorize [facility] - Payment and Healthcare Operations AUTHPRIVPRAC Yes Authoriz ation: Notice of privacy practices HIECONSENT Yes Consent To Release information to the Health Information Exchange (HIE) Plan of Care No information available. Procedures Code Procedure Name Date Entry Date CPT-74277 Nerve Conduction 13 or more studies 05/28 CPT-83876 EMG with NCS (5+ muscles) - 2 limbs 05/28 Vital Signs No information available. Immunizations No information available. Advance Directives No information available.
--- OUTSIDE RECORDS SUMMARY | 2024-09-30 12:13 | XMS_ITS | Encounter Summary ---
Author Organization [facility] Address [address] [place] [address] Care Team Providers Care Claim Taker Name Role Phone Unavailable Primary Care Provider Unavailabl e Encounter Details Date Type Department Care Team (Late st Contact Info) Description 10/09/2018 [facility] [address] [place] [address] Norman Porter M.D. [address], [place] [id number] Pain Low Back Chronic (Primary Dx); Pain Neck; Cervical Disc Disorder Social History Tobacco Use Types Packs/Day Years Used Date Smoking Tobacco: Some Days Sex and Gender Information Value Date Recorded Sex Assigned at Male 12/26/2017 9:22 AM CDT Legal Sex Male 7:44 PM [employer] Gender Identity Male 12/26/2017 9:22 AM CDT Sexual Orientation Straight 05/26/2020 11 :47 AM [employer] documented as of this encounter Plan of Treatment Not on file documented as of this encounter Visit Diagnoses Diagnosis Pain Low Back Chronic- Primary Pain Neck Cervical Disc Disorder documented in this encounter
--- OUTSIDE RECORDS SUMMARY | 2024-09-30 12:13 | XMS_ITS | Continuity of Care Document ---
Author Organization [facility] Address [address] [place] [address] Phone Care Team Providers Care Confectionery Cooker Name Role Phone Connor DOOLEY, Brendan Unavailable Unavailabl e Allergies, Adverse Reactions, Alerts Substance Reaction Status Criticality No Known Allergies Active No Inform ation Medications Medication Instructions Dosage Effective Dates (start - stop) Status Comments Butrans 5 mcg/hour transdermal patch apply 1 patch by transdermal route every 7 days 5 MCG/H - Active tramadol 50 mg tablet take 1 tablet by o ral route every 12 hours as needed as needed for chronic pain 50 MG - Active lidocaine 5 % topical patch apply 1 patch by topical route every day over battery site (May wear up to 12hours.) - Active acetaminophen 500 mg tablet take 2 tablet by oral route every 12 hours as needed 1000 MG - Active gabapentin 300 mg capsule take 1 capsule by oral route 3 times every day 300 MG - Active metoprolol succinate ER 50 mg tablet,extended release 24 hr take 1 tablet by oral route every day 50 MG - Active lisinopril 40 mg tablet take 1 tablet by oral route every day 40 MG - Active amlodipine 2.5 mg tablet take 1 tablet by oral route every day 2.5 MG - Active lovastatin 20 mg tablet take 1 tablet by oral route every day with the evening meal 20 MG - Active omeprazole 20 mg tablet,delayed release - Active naproxen 250 mg tablet take 1 tablet by oral route 2 times every day with food 250 MG - Active Procedures Procedure Date INJECT SACROILIAC JOINT OFFICE/OUTPATIENT VISIT, EST OFFICE/OUTPATIENT VISIT, EST No Charge For Visit Per Prov OFFICE/OUTPATIENT VISIT, EST No Charge For Visit Per Prov OFFICE/OUTPATIENT VISIT, EST No Charge For Visit Per Prov No Charge For Visit Per Prov X-RAY EXAM OF THORACIC SPINE PT RE EVAL EST PLAN CARE No Charge For Visit Per Prov No Charge For Visit Per Prov Revision, including replacement No Charge For Visit Per Prov OFFICE/OUTPATIENT VISIT, EST [facility] Post Op Satellite IMPLANT NEUROELECTRODES ASC INSRT/REDO SPINE N GENERATOR Implt neurostim elctr each No Charge For Visit Per Prov SCS Lead Pull Satellite Lower Back LSO Brace IMPLANT NEUROELECTRODES IMPLANT NEUROELECTRODES PT EVAL MOD COMPLEX 30 MIN SELF CARE MNGMENT TRAINING Psych Dx Eval OFFICE/OUTPATIENT VISIT, EST INTERLAMINAR CRV OR THRC INTERLAMINAR LMBR OR SAC OR CAUDAL OFFICE/OUTPATIENT VISIT, NEW Advance Directives Directive Yes / No Effective Date File Name No Information Encounters Encounter Description Practice Location Reason(s) For Visit Diagnoses Date Provider Providers Copied on Encounter [facility], [address] [place], [place], [id number] , [place] tel:[phone] [facility] Sacroiliitis, not elsewhere classified Connor Cardona. [address], [address], [place], [place], [id number], [place]. tel:[phone] Referring Provider: Norman Porter, [facility] [address] [place], [address]. tel:[phone] OFFICE/OUTPA TIENT VISIT, [facility], [address] [place] [address], [id number] , [place] tel:[phone] [facility] low back pain (chief complaint) Chronic pain syndromeRadiculo scott, lumbar regionOther care home (current) drug therapySpinal stenosis, lumbar region with neurogenic claudicationSacr oiliitis, not elsewhere classifiedSpinal stenosis, cervical region May-0 5 Connor Cardona. [address], [address], [id number], [place]. tel:[phone] Referring Provider: Norman Porter, [facility] [address] [place], [address]. tel:[phone] OFFICE/OUTPA TIENT VISIT, [facility], [address] [place] [address], [id number] , [place] tel:[phone] [facility] Widespread pain (chief complaint) Chronic pain syndromeRadiculo scott, lumbar regionOther care home (current) drug therapySpinal stenosis, lumbar region with neurogenic claudication Apr-2 5 Gustavo Juan. [address], [id number], [place]. tel:[phone] Referring Provider: Norman Porter, [facility] [address] [place], [address]. tel:[phone] [facility], [address] [place] [address], [id number] , [place] tel:[phone] [facility] Postlaminectomy syndrome, not elsewhere classified Apr-0 - 5 Gustavo Juan. [address], [place], [id number], [place]. tel:[phone] OFFICE/OUTPA TIENT VISIT, [facility], [address] [place] [address], [id number] , [place] tel:[phone] [facility] low back pain (chief complaint) Chronic pain syndromeRadiculo scott, lumbar regionSpinal stenosis, lumbar region with neurogenic claudicationOthe r care home (current) drug therapy Apr-0 - 5 Nyjoelsa Yessica. [address], [place], [id number], [place]. tel:[phone] Referring Provider: Norman Porter, [facility] [address] [place], [address]. tel:[phone] [facility], [address] [place] [address], [id number] , [place] tel:[phone] [facility] Radiculopathy, lumbar region 5 Connor Cardona. [address], [address], [place], [id number], [place]. tel:[phone] Referring Provider: Norman Porter, [facility] [address] [place], [address]. tel:[phone] OFFICE/OUTPA TIENT VISIT, [facility], [address] [place] [address], [id number] , [place] [phone] [facility] low back pain (chief complaint) Chronic pain syndromeRadiculo scott, lumbar regionSpinal stenosis, lumbar region with neurogenic claudicationOthe r intermodal owner operator truck driver (current) drug therapy [address], [place], [id number], [place]. tel:[phone] Referring Provider: Norman Porter, [facility] [address] [place], [address]. tel:[phone] [facility], [address] [place] [address], [id number] , [place] [phone] [facility] Radiculopathy, lumbar region 5 Nyjoelsa Yessica. [address], [place], [id number], [place]. tel:[phone] Referring Provider: Norman Porter, [facility] [address] [place], [address]. tel:[phone] [facility], [address] [place] [address], [id number] , [place] tel:[phone] [facility] [place] Radiculopathy, lumbar region 4 Rodrigo Christianson. [address] [facility] [place], [place], [id number], [place]. tel:[phone] Referring Provider: Norman Porter, [facility] [address] [place], [address]. tel:[phone] [facility], [address] [place] [address], [id number] , [place] tel:[phone] [facility] [place] lumbago (chief complaint) Radiculopathy, lumbar regionPostlamine ctomy syndrome, not elsewhere classified 4 María Elena Valdivia. [address] [place], [place], [id number], [place]. tel:[phone] [facility], [address] [place] [address], [id number] , [place] tel:[phone] [facility] [place] Radiculopathy, lumbar region 4 Gustavo Juan. [address], [place], [id number], [place]. tel:[phone] Referring Provider: Norman Porter, [facility] [address] [place], [address]. tel:[phone] [facility], [address] [place] [address], [id number] , [place] tel:[phone] [facility] [place] Radiculopathy, lumbar region 4 Gustavo Juan. [address], [place], [id number], [place]. tel:[phone] Referring Provider: Norman Porter [facility] [address] [place], [address]. tel:[phone] [facility], [address] [place] [address], [id number] , [place] tel:[phone] [facility] [place] Chronic pain syndromeRadiculo scott, lumbar region 4 Meg Dumas. [address] [facility] [place], [place], [place], [id number], [place]. tel:[phone] Referring Provider: Norman Porter [facility] [address] [place], [address]. tel:[phone] [facility], [address] [place] [address], [id number] , [place] tel:[phone] [facility] Postlaminectomy syndrome, not elsewhere classified 4 Gustavo Juan. [address] [facility] [address], [id number], [place]. tel:[phone] Referring Provider: Norman Porter [facility] [address] [place], [address]. tel:[phone] OFFICE/OUTPA TIENT VISIT, EST [facility], [address] [place] [address], [id number] , [place] tel:[phone] [facility] Back Pain (chief complaint) Chronic pain syndromeRadiculo scott, lumbar regionSpinal stenosis, lumbar region with neurogenic claudicationOthe r intermodal owner operator truck driver (current) drug therapy 4 Gustavo Juan. [address] [facility] [address] [facility] [address], [place], [id number], [place]. tel:[phone] Referring Provider: Norman Porter [facility] [address] [place], [address]. tel:[phone] [facility], [address] [place] [address], [id number] , [place] tel:[phone] [facility] Radiculopathy, lumbar region Feb- 4 Nilaricky Juan. [address], [place], [id number], [place]. tel:[phone] Referring Provider: Norman Porter, [facility] [address] [place], [address]. tel:[phone] [facility], [address] [place] [address], [id number] , [place] tel:[phone] [facility] Radiculopathy, lumbar region Feb- 0 4 Oniel Lopez. [address] [place], [place], [id number], [place]. tel:[phone] Referring Provider: Norman Porter, [facility] [address] [place], [address]. tel:[phone] [facility], [address] [place] [address], [id number] , [place] tel:[phone] [facility] Radiculopathy, lumbar region Jan- 4 Gustavo Yessica. [address], [id number], [place]. tel:[phone] Referring Provider: Norman Porter [facility] [address] [place], [address]. tel:[phone] [facility], [address] [place] [address], [id number] , [place] tel:[phone] [facility] No Information Jan- 4 Gustavo Yessica. [address], [id number], [place]. tel:[phone] Referring Provider: Norman Porter, [facility] [address] [place], [address]. tel:[phone] [facility], [address] [place] [address], [id number] , [place] tel:[phone] [facility] Radiculopathy, lumbar region Sep- 4 Oniel Lopez. [address] [place] [address], [id number], [place]. tel:[phone] Referring Provider: Norman Porter, [address], [address]. tel:[phone] [facility], [address] [place] [address], [id number] , [place] tel:[phone] [facility] Radiculopathy, lumbar region Dec- 4 Gustavo Juan. [address] [place] [address] [address], [place], [place], [id number], [place]. tel:[phone] Referring Provider: Norman Porter, [facility] [address] [place], [address]. tel:[phone] [facility], [address] [place] [address], [id number] , [place] [phone] [facility] lumbago (chief complaint) Radiculopathy, lumbar region Dec- 4 Ravinder Crenshaw. [address] [place] [address], [id number], [place]. tel:[phone] Referring Provider: Norman Porter, [facility] [address] [place], [address]. tel:[phone] Psych Dx Eval [facility], [address] [place] [address], [id number] , [place] [phone] [facility] Pain disorder with related psychological factors 0 4 Johanna Gao. [address] [place] [address], [id number], [place]. tel:[phone] OFFICE/OUTPA TIENT VISIT, EST [facility], [address] [place] [address], [id number] , [place] [phone] [facility] Back Pain (chief complaint) Chronic pain syndromePostlami nectomy syndrome, not elsewhere classifiedRadicu lopathy, cervical regionRadiculopa thy, lumbar regionSpinal stenosis, lumbar region with neurogenic claudicationMajo r depressive disorder, single episode, unspecifiedOther care home (current) drug therapyOther muscle spasm 4 Gustavo Juan. [address], [place], [place], [id number], [place]. tel:[phone] Referring Provider: Norman Porter, [facility] [address] [place], [address]. tel:[phone] [facility], [address] [place] [address], [id number] , [place] [phone] [facility] Radiculopathy, cervical region 4 Meg Dumas. [address] [place] [address], [id number], [place]. tel:[phone] Referring Provider: Norman Porter [facility] [address] [place], [address]. tel:[phone] [facility], [address] [place] [address], [id number] , [place] tel:[phone] [facility] Radiculopathy, lumbar region 4 Meg Dumas. [address] [place], [place], [id number], [place]. tel:[phone] Referring Provider: Norman Porter, [facility] [address] [place], [address]. tel:[phone] OFFICE/OUTPA TIENT VISIT, [facility], [address] [place] [address], [id number] , [place] tel:[phone] [facility] Back Pain (chief complaint) Chronic pain syndromePostlami nectomy syndrome, not elsewhere classifiedRadicu lopathy, cervical regionRadiculopa thy, lumbar regionSpinal stenosis, lumbar region with neurogenic claudicationMajo r depressive disorder, single episode, unspecifiedOther intermodal owner operator truck driver (current) drug therapy 4 Gustavo Juan. [address] [facility] [address], [place], [place], [id number], [place]. tel:[phone] Referring Provider: Norman Porter, [facility] [address] [facility], [place], [address]. tel:[phone] Family History Family Member Type Diagnosis Age At Onset No Information Payers Payer name Insurance type Covered democrat ID Authoriza tion(s) Medicare MB [id number] [employer] Supplement BL [id number] Social History Type Description Quantity Date Captured Comments Sex Male Smoking Status No Information Chief Complaint And Reason For Visit No Information Reason For Referral Reason For Referral No Information Plan Of Treatment Date Type Action Status Goal Height. Due on d ue Goal Zoster vaccine ( 1st). Due on due Goal Unhealthy drug u se screening. Due on due Goal Update Social Hi story. Due on due Goal Review Allergy L ist. Due on due Goal Tobacco Use. Due on 025 due Goal Medication Recon ciliation. Due on due Goal Zoster vaccine ( 2nd). Due on due Goal Weight. Due on d ue Goal PHQ-9. Due on du e Goal Tobacco screenin g. Due on due Goal Height. Due on d ue Goal Tobacco screenin g. Due on due Goal Medication Recon ciliation. Due on due Goal Zoster vaccine ( 1st). Due on due Goal PHQ-9. Due on du e Goal Weight. Due on d ue Goal Unhealthy drug u se screening. Due on due Goal Zoster vaccine ( 2nd). Due on due Goal Review Allergy L ist. Due on due Goal Tobacco Use. Due on due Goal Update Social Hi story. Due on due Goal Weight. Due on d ue Goal Unhealthy drug u se screening. Due on due Goal Zoster vaccine ( 1st). Due on due Goal Height. Due on d ue Goal Medication Recon ciliation. Due on due Goal Tobacco Use. Due on due Goal Review Allergy L ist. Due on due Goal Update Social Hi story. Due on due Goal Tobacco screenin g. Due on due Goal Zoster vaccine ( 2nd). Due on due Goal PHQ-9. Due on du e Goal Zoster vaccine ( 1st). Due on due Goal Tobacco Use. Due on due Goal Height. Due on d ue Goal Update Social Hi story. Due on due Goal Zoster vaccine ( 2nd). Due on due Goal Review Allergy L ist. Due on due Goal PHQ-9. Due on du e Goal Tobacco screenin g. Due on due Goal Unhealthy drug u se screening. Due on due Goal Weight. Due on d ue Goal Medication Recon ciliation. Due on due Goal Update Social Hi story. Due on due Goal Zoster vaccine ( 1st). Due on due Goal Review Allergy L ist. Due on due Goal Weight. Due on d ue Goal Tobacco Use. Due on due Goal PHQ-9. Due on du e Goal Unhealthy drug u se screening. Due on due Goal Medication Recon ciliation. Due on due Goal Height. Due on d ue Goal Medication Recon ciliation. Due on due Goal Update Social Hi story. Due on due Goal Unhealthy drug u se screening. Due on due Goal PHQ-9. Due on du e Goal Zoster vaccine ( 1st). Due on due Goal Height. Due on d ue Goal Tobacco Use. Due on due Goal Weight. Due on d ue Goal Review Allergy L ist. Due on due Goal Review Allergy L ist. Due on due Goal Zoster vaccine ( 1st). Due on due Goal Tobacco Use. Due on 025 due Goal Weight. Due on d ue Goal PHQ-9. Due on du e Goal Unhealthy drug u se screening. Due on due Goal Medication Recon ciliation. Due on due Goal Update Social Hi story. Due on due Goal Height. Due on d ue Goal Update Social Hi story. Due on due Goal Tobacco Use. Due on due Goal Unhealthy drug u se screening. Due on due Goal Weight. Due on d ue Goal PHQ-9. Due on du e Goal Review Allergy L ist. Due on due Goal Height. Due on d ue Goal Medication Recon ciliation. Due on due Goal Zoster vaccine ( 1st). Due on due Goal Tobacco Use. Due on due Goal Weight. Due on d ue Goal Review Allergy L ist. Due on due Goal Update Social Hi story. Due on due Goal Height. Due on d ue Goal PHQ-9. Due on du e Goal Unhealthy drug u se screening. Due on due Goal Medication Recon ciliation. Due on due Goal Zoster vaccine ( ). Due on due Goal Weight. Due on d ue Goal Unhealthy drug u se screening. Due on due Goal Zoster vaccine ( ). Due on due Goal PHQ-9. Due on du e Goal Medication Recon ciliation. Due on due Goal Height. Due on d ue Goal Review Allergy L ist. Due on due Goal Tobacco Use. Due on due Goal Update Social Hi story. Due on due Goal Medication Recon ciliation. Due on due Goal Update Social Hi story. Due on due Goal Unhealthy drug u se screening. Due on due Goal Weight. Due on d ue Goal Zoster vaccine ( ). Due on due Goal Tobacco Use. Due on due Goal Review Allergy L ist. Due on due Goal PHQ-9. Due on du e Goal Height. Due on d ue Goal Review Allergy L ist. Due on due Goal Unhealthy drug u se screening. Due on due Goal Tobacco Use. Due on due Goal Medication Recon ciliation. Due on due Goal Update Social Hi story. Due on due Goal PHQ-9. Due on du e Goal Height. Due on d ue Goal Weight. Due on d ue Goal Zoster vaccine ( ). Due on due Goal Zoster vaccine ( ). Due on due Goal Medication Recon ciliation. Due on due Goal Height. Due on d ue Goal Weight. Due on d ue Goal Update Social Hi story. Due on due Goal PHQ-9. Due on du e Goal Review Allergy L ist. Due on due Goal Tobacco Use. Due on due Goal Unhealthy drug u se screening. Due on due Goal Update Social Hi story. Due on due Goal Unhealthy drug u se screening. Due on due Goal Tobacco Use. Due on due Goal Review Allergy L ist. Due on due Goal Zoster vaccine ( ). Due on due Goal PHQ-9. Due on du e Goal Medication Recon ciliation. Due on due Goal Height. Due on d ue Goal Weight. Due on d ue Goal Height. Due on d ue Goal Unhealthy drug u se screening. Due on due Goal PHQ-9. Due on du e Goal Update Social Hi story. Due on due Goal Review Allergy L ist. Due on due Goal Tobacco Use. Due on due Goal Medication Recon ciliation. Due on due Goal Weight. Due on d ue Goal Zoster vaccine ( ). Due on due Goal Medication Recon ciliation. Due on due Goal Review Allergy L ist. Due on due Goal Height. Due on d ue Goal Zoster vaccine ( ). Due on due Goal Tobacco Use. Due on due Goal Weight. Due on d ue Goal PHQ-9. Due on du e Goal Unhealthy drug u se screening. Due on due Goal Update Social Hi story. Due on due Goal Update Social Hi story. Due on due Goal Unhealthy drug u se screening. Due on due Goal PHQ-9. Due on du e Goal Height. Due on d ue Goal Review Allergy L ist. Due on due Goal Tobacco Use. Due on due Goal Weight. Due on d ue Goal Zoster vaccine ( 1st). Due on due Goal Medication Recon ciliation. Due on due Goal Weight. Due on d ue Goal Review Allergy L ist. Due on due Goal Medication Recon ciliation. Due on due Goal Height. Due on d ue Goal Tobacco Use. Due on due Goal PHQ-9. Due on du e Goal Update Social Hi story. Due on due Goal Unhealthy drug u se screening. Due on due Goal Zoster vaccine ( 1st). Due on due Goal Update Social Hi story. Due on due Goal Unhealthy drug u se screening. Due on due Goal Medication Recon ciliation. Due on due Goal PHQ-9. Due on du e Goal Zoster vaccine ( 1st). Due on due Goal Height. Due on d ue Goal Review Allergy L ist. Due on due Goal Tobacco Use. Due on due Goal Weight. Due on d ue Goal Lifestyle educat ion regarding diet completed Future Order: Radiology Order MR Cervical WO ([id number]), Sent on: Sent Future Order: Radiology Order MR I Cervical Spine W/O Dye ([id number]), Ordered on: Ordered Future Order: Radiology Order MR I Lumbar Spine W/O Dye ([id number]), Ordered on: Ordered History Of Present Illness Encounter Date Complaint History Of Saray nt Illness low back pain Duration: chroni c. Comments: Marino presents to the clinic for a follow up regarding chronic low back pain. Pain has been stable overall since CORKY. Accompanied by his son today, who also contributes to the visit. States that the pain is most severe in the morning when he wakes up and gradually improves throughout the day. Pain aggravated/builds with walking/ambulation, requiring him to rest after about 50 yards. (+) shopping cart sign. Endorses some weakness of his legs with prolonged walking. Pain relieved quickly by sitting down, though still has some pain when sitting. However, he states that this is located about 6 inches inferior to normal pain from walking. Denies any persistent numbness/tingling. Pain that he experiences when sitting is concentrated around the tailbone/SIJ region. Aggravated by transitional movements and rolling over in bed.Also c/o neck, BUE and BL finger pain/numbness. States that he has minimal functionality in some of his fingers. Feels that the pain has been stable since his last cervical MRI in November of 2023. 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 Has not recently consulted w/ a spine surgeon, though states that he did have a visit w/ a spine surgeon at [facility] and was advised against surgery at the time. Comments: Marino presents to the clinic for a follow up regarding chronic low back pain , s/p with SCS implant with no benefit, despite multiple reprogramming. Back pain worse with standing and walking. Still has to use walker to ambulate and states that's not where he wants to be. Pool therapy ordered last visit not completed Accompanied by his son today, who also contributes to the visit. 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 Duration: chronic. Location of the pain is lower back, arms and fingers. Symptom is aggravated by bending, sitting, standing, walking and reaching overhead. low back pain Duration: chroni c. Symptoms are aggravated by bending, sitting, standing, walking and reaching overhead. Comments: Marino presents to the clinic for a follow up regarding chronic low back pain d/t new pain around his SCS battery site. Discussed sarting a journal with [employer] rep today to keep track of programm's they've tried and relief they've provided. Denies groin pain but rolling over in bed does hurt. Did not notice any change between when SCS was on vs off. Still has to use walker to ambulate and states that's not where he wants to be. Denies having tries Pool therapy before but is willing to try it. Would be interested in meds as well to mange pain. Accompanied by his son today, who also contributes to the visit. Reports pain over his SCS battery site in his right buttockshas subsided since recently stopped HEP and PT. Reports that he does not notice any significant difference to his pain when his SCS is turned off.Son states Marino has been losing feelings in both hands and is worried pain might get worst. Previously tried PT for elbows and hands which didn't help. Appears that they had consult with [facility] about UE numbness , records requestedNo other concerns today. low back pain Severity level i s 10. Duration: chronic. The patient describes the pain as sharp and tingling. Symptoms are aggravated by bending, sitting, standing, walking and reaching overhead. Comments: This i s my first evaluation of the patient, whose care is routinely managed by my colleague Yessica Chen DNP, most recently seen on 03/09/24. Previous records, clinic notes, and imaging reviewed. Marino presents to the clinic for a follow up regarding chronic low back pain due to new pain around his SCS battery site. Reports new onset pain most focal over his SCS battery site in his right buttocks, which began several days ago. There is no specific event which started the pain but does note he was increasing his HEP from PT. Describes the pain as sharp/stabbing and deep. Reports it feels like it may be nerve pain. Pain is aggravated by prolonged standing/walking which sometimes result in shooting pains to his RLE. Also worse with activity and movement in general. Pain is relieved only by laying down and he is pain free while laying flat. No new numbness/tingling or weakness.Has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
--- OUTSIDE RECORDS SUMMARY | 2024-09-30 12:13 | XMS_ITS | Clinical Summary ---
Author Organization [facility] Address [address] [place] [address] Care Team Providers Care Skydiving Instructor Name Role Phone Unavailable Primary Care Provider Unavailabl e Source Comments Patient records contain information from all sites at [facility]. For routine questions regarding patient records, call [phone] during business hours, M-F 8:00 AM - 5:00 PM Central Time. Record requests for emergency care only can be directed to [phone] at any time.[facility] Allergies No known active allergies Medications * This document contains information received from the source organization and may not represent a complete record from that organization. lisinopril (PRINIVIL,ZESTR IL) 40 mg tablet Take 1 tablet by mouth daily. 12/08/2015 Active metoprolol succinate (TOPROL-XL) 50 mg 24 hr tablet Daily 03/29/2020 Act mehnaz lovastatin (MEVACOR) 20 mg tablet Bedtime 03/29/2020 Active polyethylene glycol (MIRALAX) 17 gram/dose oral powder Take 17 g by mouth daily. 08/21/2022 Active acetaminophen (TYLENOL) 500 mg tablet Take 500 mg by mouth every 6 (six) hours as needed for pain. Active amLODIPine (NORVASC) 2.5 mg tablet Take 2.5 mg by mouth daily. Active omeprazole (PriLOSEC) [address] capsule Take 1 capsule by mouth daily. 02/24/2014 Active acetaminophen/d iphenhydramine (TYLENOL PM EXTRA STRENGTH ORAL) Take by mouth. 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 Cerumen Impacted Bilateral (Primary Dx) 07/03/2024 1:30 PM HOUSING LIAISON Clinical Communication Virtual Review in [place], [place] [address] [place] [address] Pre-visit Intake from Last 3 Months Immunizations Immunization Administration Dates Next Due Influenza, Seasonal, Injectable 03/14/2007 Family History Medical History Relation Name Comments Colon cancer Father katy streeter Coronary artery disease Father katy streeter Relation Name Status Comments Father katy streeter Social History Tobacco Use Types Packs/Day Years Used Date Smoking Tobacco: Some Days Cigars Passive Smoke Exposure: Past Smokeless Tobacco: Never Tobacco Cessation:Ready to Q uit: Not Asked; Counseling Given: Not Answered Alcohol Use Standard Drinks/Week Comments Yes 0 (1 standard drink = 0.6 oz pur e alcohol) [facility] Prediktities Answer Date Recorded In the past 12 months has e [email or web address], gas, oil, or water [employer] threatened to shut off services in your home? No 10/02/2023 Humiliation, Afraid, Rape, and Kick questionnair e Answer Date Recorded Within the last year, have y ou been afraid of your partner or ex-partner? No 08/26/2022 Within the last year, have y ou been humiliated or emotionally abused in other ways by your partner or ex-partner? No Within the last year, have y ou been kicked, hit, slapped, or otherwise physically hurt by your partner or ex-partner? No 08/26/2022 Within the last year, have y ou been raped or forced to have any kind of sexual activity by your partner or ex-partner? No 08/26/2022 Social Connection and Isolat ion Panel [NHANES] Answer Date Recorded In a typical week, how many times do you talk on the phone with family, friends, or neighbors? Once a week 08/26/2022 How often do you get togethe r with friends or relatives? Twice a week 08/26/2022 How often do you attend chur ch or hoahaoism services? More than 4 times per year 08/26/2022 Do you belong to any clubs o r organizations such as tenriism groups, unions, fraternal or athletic groups, or school groups? Yes 08/26/2022 How often do you attend meet ings of the clubs or organizations you belong to? 1 to 4 times per year 08/26/2022 Are you , , di vorced, , never , or living with a partner? 08/26/2022 AUDIT-C Answer Date Recorded Q1: How often do you have a drink containing alcohol? 4 or more times a week 08/26/2022 Q2: How many drinks containi ng alcohol do you have on a typical day when you are drinking? 1 or 2 3 Q3: How often do you have si x or more drinks on one occasion? Never 08/26/2022 Overall Financial Resource Strain (CARDIA) Answe r Date Recorded How hard is it for you to pa y for the very basics like food, housing, medical care, and heating? Not hard at all 08/26/2022 PHQ-2 Answer Date Recorded PHQ-2 Score 1 11/27/2018 [facility] - Occupational Stress Questionnaire Answer Date Recorded Do you feel stress - tense, restless, nervous, or anxious, or unable to sleep at night because your mind is troubled all the time - these days? Rather much 08/26/2022 Exercise Vital Sign Answer Date Recorde d On average, how many days pe r week do you engage in moderate to strenuous exercise (like a brisk walk)? 7 days 10/02/2023 On average, how many minutes do you engage in exercise at this level? 20 min 10/02/2023 Hunger Vital Sign Answer Date Recorded Within the past 12 months, y ou worried that your food would run out before you got the money to buy more. Never true 10/02/19 24 Within the past 12 months, t he food you bought just didn't last and you didn't have money to get more. Never true 10/02/2023 PRAPARE - Transportation Answer Date Re corded In the past 12 months, has l ack of transportation kept you from medical appointments or from getting medications? No 09/17 In the past 12 months, has l ack of transportation kept you from meetings, work, or from getting things needed for daily living? No 10/02/2023 Nutrition Answer Date Recorded On average, how many serving s of fruits and vegetables do you eat per day (serving size is equal to 1 cup or approximately the size of a tennis ball)? 3-5 10/02/2023 Dental Answer Date Recorded Dental: Regular Dentist Yes 01/09/20 Employment Answer Date Recorded Employment status Retired 10/02/2023 Housing Stability Answer Date Recorded What is your living situation today? I have a [facility] place to live 10/02/2023 Education Answer Date Recorded What is the highest level of school you have completed or the highest degree you have received? Associate degree: occupational, technical, or vocational program 08/26/2022 Sex and Gender Information Value Date Recorded Sex Assigned at Male 12/26/2017 9:22 AM CDT Legal Sex Male 7:44 PM HOUSING LIAISON Gender Identity Male 12/26/2017 9:22 AM CDT Sexual Orientation Straight 05/26/2020 11 :47 AM HOUSING LIAISON Last Filed Vital Signs Vital Sign Reading Time Taken Comments Blood Pressure 165/69 01/05/2019 1:31 PM CDT Pulse 57 01/05/2019 1:31 PM CDT Temperature 36.4 C (97.5 F) 01/05/2019 12:41 PM CDT Respiratory Rate - - Oxygen Saturation 97% 01/05/2019 1:31 PM CDT Inhaled Oxygen Concentration - - Weight 86 kg (189 lb 9.5 oz) 12/01/2018 12:52 PM CDT Height 179 cm (5' 10.47) 12/01/2018 12:52 PM CD T Body Mass Index 26.84 12/01/2018 12:52 PM CDT Plan of Treatment Health Maintenance Due Date Last Done Comments Tobacco Cessation counseling 1940 Zoster Vaccines (1 of 2) 1991 RSV vaccine - (32-36 weeks) or 60+ years (1 - 1-dose 75+ series) 01/23/2016 COVID-19 Vaccine (2023- season) 2024 03/13/2023, 04/10/2022, 12/05/2021, Additional history exists Influenza Vaccine (#1) 2024 , 04/10/2022, 03/27/2021, Additional history exists Depression Screening (Annual PHQ-2) 05/20/2024 Fall Risk Screen (Annual) 05/20/2024 Creatinine Level (Kidney Function Test) 08/22/2024 08/23/2023, 04/08/2019 Potassium Level 08/22/2024 08/23/2023 Sodium Level 08/22/2024 08/23/2023 DTaP,Tdap,and Td Vaccines (3 - Td or Tdap) 04/10/2032 04/10/2022, 01/16/2011, 05/01/2006 Pneumococcal vaccine (50+ years) Completed 02/24/2014, 05/01/2006 IPV Vaccines Aged Out No longer eligi ble based on patient's age to complete this topic Medical Devices Implanted Type Area Track Inspector Device Identifier Shelf Expiration Date Model / Serial / Lot Conversions - Default Historical Implant Device Implanted:12/19 (Quantity not on file) Ear Implant Other/Legacy - See Implant Description Description:Body Location - Other. L ear. Device Status Text - Aud Imp. Insurance MEDICARE [facility] Advance Directives For more information, please contact: [phone] Documents on File Type Date Recorded Patient Learning And Development Officer Expl anation Advance Directives 05/07/2018 10:25 PM [facility] bequest
--- OUTSIDE RECORDS SUMMARY | 2024-09-30 12:13 | XMS_ITS | Continuity of Care Document ---
Author Organization [facility] enter Address [address] [place] [address] 11 [facility] [address] [place] [address] Phone Care Team Providers Care Property Analyst Name Role Phone [facility] Unavailable Unava ilable Procedures Procedure Date Revision, including replacement INSRT/REDO SPINE N GENERATOR Implt neurostim elctr each IMPLANT NEUROELECTRODES IMPLANT NEUROELECTRODES INTERLAMINAR CRV OR THRC INTERLAMINAR CRV OR THRC INTERLAMINAR LMBR OR SAC Advance Directives Directive Yes / No Effective Date File Name No Information Encounters Encounter Description Practice Location Reason(s) For Visit Diagnoses Date Provider Providers Copied on Encounter [facility], [address] [place] [address], [id number], [place] tel:[phone] [place] [address] No Information [facility]. [address] [place] [address], [id number], [place]. tel:[phone] Referring Provider: Brendan Ryan, [facility] [address], [place], [address] . tel:[phone] [facility], [address] [place] [address] 11 [facility] [address], [place], [id number], tel:[phone] [place] [address] No Information [facility]. [address] [place] [address], [id number], [place]. tel:[phone] Referring Provider: Piter Waever, [address] [facility], [place], [address] . tel:[phone] [facility], [address] [place] [address], [id number], [place] tel:[phone] [place] [address] No Information 4 [facility]. [address] [place] [address], [id number], [place]. tel:[phone] Referring Provider: Jessica Engle, [address] [place] [address], [address] . tel:[phone] [facility], [address] [place] [address], [id number], [place] tel:[phone] [place] [address] No Information 4 [facility]. [address] [place] [address], [id number], [place]. tel:[phone] Referring Provider: Jessica Engle, [address] [place] [address], [place], [address] . tel:[phone] [facility], [address] [place] [address], [id number], [place] tel:[phone] [place] [address] No Information 4 [facility]. [address] [place] [address], [id number], [place]. tel:[phone] Referring Provider: Piter Weaver, [address] [place] [address], [place], [address] . tel:[phone] [facility], [address] [place] [address], [id number], [place] tel:[phone] [place] [address] No Information 4 [facility]. [address] [facility] 11 [facility] [address], [place], [place], [id number], [place]. tel:[phone] Referring Provider: Piter Weaver, [address] [facility], [place], [address] . tel:[phone] Family History Family Member Type Diagnosis Age At Onset No Information Payers Payer name Insurance type Covered libertarian ID Authorpacheco ortega(s) Medicare [id number] [facility] Supplement [id number] Social History Type Description Quantity Date Captured [...]
--- OUTSIDE RECORDS SUMMARY | 2024-09-30 12:13 | XMS_ITS | Clinical Summary ---
Author Organization [facility] Address [address] [place] [address] Care Team Providers Care Irrigation Specialist Name Role Phone Norman Porter MD Primary Care Provider [phone] Allergies No known active allergies Medications omeprazole (PRILOSEC) 20 mg Delayed-Release capsule Take 1 capsule by mouth once daily before a meal. 90 capsule 3 02/24/2014 Active metoprolol succinate (TOPROL XL) 50 mg sustained-relea se tablet Daily Active lisinopril (PRINIVIL; ZESTRIL) 40 mg tablet Daily 12/08/2015 Active lovastatin (MEVACOR) 20 mg tablet TK 1 T PO HS 4 03/24/2019 Active amLODIPine (NORVASC) 2.5 mg tablet Daily 03/29/2020 Active polyethylene glycoL (MIRALAX) 17 gram/scoop powder Mix 1 scoop (17 g) in liquid then take by mouth. 0 08/21/2022 Active gabapentin (NEURONTIN) 300 mg capsule Take 1 Capsule (300 mg) by mouth three times daily. Taper by reducing 1 pill each week until stopping completely. 08/23/2023 Active Active Problems Problem Noted Date Diagnosed Date PMR (polymyalgia rheumatica) 09/26/2022 Overview (08/25/2023): Diagnosis early 2022, Dramatic improvement in Shoulder symptoms when on prednisone. Mar 2023: stopped prednisone. April 2023: Arm symptoms are starting to return, restarted prednisone 5 mg daily. Consider referral to nut chopper? Chronic low back pain with bilateral sciatica Coronary atherosclerosis of unspecified type of vessel, um[place] tribe or graft Esophageal reflux Obesity, unspecified Mixed hyperlipidemia Tobacco use disorder Overview (06/26/2007): Cigar Benign neoplasm of colon Impaired glucose tolerance test DNR/DNI Unspecified essential hypertension Immunizations Immunization Administration Dates Next Due COVID-19 VACCINE SPIKEVAX (M ODERNA 50MCG/0.5ML) 12YO+ PFS 03/13/2023 COVID-19 vaccine ([employer] 30mcg/0.3mL) PF, MDV 12/05/2021,02/21/2021,07/30/2020,2020 Influenza, High-dose Inactivated 019,03/12/2018,03/08/2017,2015,02/24/2014,02/29/2012 Influenza, High-dose Quadriv alent Inactivated 04/10/2022,03/27/2021,03/11/2020 Influenza, IIV3 (Age >=3 years) 03/27/20 13,01/16/2011,02/10/2010,2009,02/03/2009,03/14/2007 Influenza, IIV4 03/17/2015 Influenza, Inactivated AIIV4 (Age 65+ Years) Preserv Free 03/13/2023 Pneumococcal Poly,23-Valent (Pneumovax) 05/01/2006 Pneumococcal conj 13-Valent (Prevnar 13) 02/24/2014 Td, Preservative Free (age > = 7 Years) 05/01/2006 Tdap 04/10/2022,01/16/2011 Social History Tobacco Use Types Packs/Day Years Used Date Smoking Tobacco: Some Days Cigars Smokeless Tobacco: Never Tobacco Cessation:Ready to Q uit: Not Asked; Counseling Given: Yes Comments:occasional cigar when golfing or casino Alcohol Use Standard Drinks/Week Comments Yes 11.7 (1 standard drink = 0.6 oz pure alcohol) 1 drink per day PHQ-2 Answer Date Recorded PHQ-2 TOTAL SCORE 0 09/26/2023 Social Connections Answer Date Recorded Do you often feel lonely or isolated from those around you? 0 08/23/2023 Financial Resource Strain Answer Date R ecorded Difficulty of Paying Living Expenses 3 08/23/2023 Difficulty of Paying Living Expenses Not on file 08/23/2023 Food Insecurity Answer Date Recorded Do you worry your food will run out before you are able to buy more? 1 08/23/2023 Transportation Needs Answer Date Record ed Does lack of transportation keep you from medica l appointments? 1 08/23/2023 Does lack of transportation keep you from work, meetings or getting things that you need? 1 08/23/2023 Housing Stability Answer Date Recorded What is your housing situation today? 1 08/23/2023 Utilities Answer Date Recorded Do you have trouble paying f or utilities (for example, heat, electricity, water, phone)? 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 Gender Identity Not on file Sexual Orientation Not on file Obstetrics History Last Filed Vital Signs Vital Sign Reading Time Taken Comments Blood Pressure 158/76 09/26/2023 9:30 AM CDT Pulse 61 09/26/2023 8:53 AM CDT Temperature 36.6 C (97.8 F) 01/19/2021 9:58 AM CDT Respiratory Rate 16 04/22/2019 10:5 9 AM CEMENT CRUSHER OPERATOR Oxygen Saturation 97% 09/26/2023 8:5 1 AM CDT Inhaled Oxygen Concentration - - Weight 87.4 kg (192 lb 9.6 oz) 09/26/19 24 8:51 AM CDT Height 173.9 cm (5' 8.47) 08/23/2023 1 2:25 PM CDT with shoes Body Mass Index 28.89 08/23/2023 12:25 PM CDT Plan of Treatment Health Maintenance Due Date Last Done Comments Zoster (shingles) series for age 50+ (1 of 2) 1991 Medicare Wellness for age 65+ 2006 RSV vaccine for adults or (1 - 1-dose 75+ series) 01/23/2016 COVID-19 vaccine series ( season) 2024 03/13/2023, 04/10/2022, 12/05/2021, Additional history exists BMI (ht and wt on same day) for age 18+ 08/22/2024 08/23/2023 Depression screening for age 12+ 09/25/2024 09/26/19 24 Influenza Vaccine (Season Ended) 2025 03/13/2023, 03/19/2019, 03/12/2018, Additional history exists Tetanus booster 04/10/2032 04/10/2022, 12/20, 05/01/2006 Pneumococcal series for age 50+ Completed 4, 05/01/2006 Tdap Completed 04/10/2022, 01/16/2011 Insurance MEDICARE PB ONLY [facility] MEDICARE PART A HB ONLY MEDICARE PART B HB ONLY MEDICARE PART B HB ONLY [facility] Care Teams Irrigation Specialist Relationship Specialty Start Date End Date Norman Porter MD [address] [place] [address] PCP - General Family Practice 12/30/19
[2024-09-30 12:26] VITALS: BP 174/89; PULSE 69; RESP 18; TEMP 36.2; O2SAT 95; BMI 26.6
--- NOTE | 2024-09-30 12:38 | ED_ITS ---
HPI - General Adult General Chief complaint: Constipation Stated complaint: constipated and back pain Time Seen by Provider: 09/30/24 12:15 History of Present Illness HPI narrative: Pt here for eval of constipation ( last BM Sat NOC after suppository), worsening lwr back pain. Saturday Pt received 4 shots for chronic back issues and believes this might be exacerbating constipation. Did take 2 suppositories today with no results. Hx of blockages. 84-year-old man presenting to the emergency room with concern of constipation. Has tried a couple suppositories today. Have history of chronic back pain and 2 days ago did have some shots in his back for pain. No fever. Back pain is much improved. Just started on buprenorphine patches apparently with concern of constipation from oral opiates. By the time I am seeing Mr. Declan vasquez, he has had a bowel movement in the bathroom and feels markedly improved. Related Data Home Medications ?Medication ?Instructions ?Recorded ?Confirmed acetaminophen 500 mg tablet 1,000 mg PO QID PRN 09/30/24 (Tylenol Extra Strength) buprenorphine 5 mcg/hour weekly 1 patch topical transdermal patch Previous Rx's ?Medication ?Instructions ?Recorded amlodipine 2.5 mg tablet 2.5 mg PO DAILY #90 tabs gabapentin 300 mg capsule 300 mg PO TID #270 caps 04/19 11/10 lisinopril 40 mg tablet 40 mg PO DAILY #90 tabs 04/19 11/10 lovastatin 20 mg tablet 20 mg PO HS #90 tabs 4 metoprolol succinate 50 mg 50 mg PO DAILY #90 tabs tablet,extended release 24 hr omeprazole 20 mg capsule,delayed 20 mg PO DAILY #90 ca ps 05/04/24 release Allergies Allergy/AdvReac Type Severity Reaction Status Date / Time No Known Allergies Allergy Verified 09/30/24 12:26 Review of Systems Status of ROS: Reports: 6 or more systems reviewed and unremarkable except as noted in History and below [facility] Medical History Chronic low back pain ?M54.50 - Low back pain, unspecified (ICD-10) ?G89.29 - Other chronic pain (ICD-10) Chronic neck pain ?M54.2 - Cervicalgia (ICD-10) ?G89.29 - Other chronic pain (ICD-10) Colon polyp ?K63.5 - Polyp of colon (ICD-10) Coronary artery disease ?I25.10 - Atherosclerotic heart disease of enterprise coronary artery without angina pectoris (ICD-10) 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 ?M50.90 - Cervical disc disorder, unspecified, unspecified cervical region (ICD-10) Fasting hyperglycemia ?R73.01 - Impaired fasting glucose (ICD-10) GERD (gastroesophageal reflux disease) ?K21.9 - Gastro-esophageal reflux disease without esophagitis (ICD-10) 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 ?M51.26 - Other intervertebral disc displacement, lumbar region (ICD-10) ?M51.36 - Other intervertebral disc degeneration, lumbar region (ICD-10) Hyperlipidemia ?E78.5 - Hyperlipidemia, unspecified (ICD-10) Hypertension ?I10 - Essential (primary) hypertension (ICD-10) Malignant neoplasm of prostate ?C61 - Malignant neoplasm of prostate (ICD-10) Mastoiditis ?H70.90 - Unspecified mastoiditis, unspecified ear (ICD-10) Partial small bowel obstruction ?K56.600 - Partial intestinal obstruction, unspecified as to cause (ICD-10) Small bowel obstruction ?K56.609 - Unspecified intestinal obstruction, unspecified as to partial versus complete obstruction (ICD-10) History of pilonidal cyst ?Z87.2 - Personal history of diseases of the skin and subcutaneous tissue (ICD-10) History of malignant neoplasm of prostate ?Z85.46 - Personal history of malignant neoplasm of prostate (ICD-10) Surgical History History of bladder surgery ?Z98.890 - Other specified postprocedural states (ICD-10) History of phacoemulsification of cataract of both eyes with intraocular lens implantation ?Z98.41 - Cataract extraction status, right eye (ICD-10) ?Z98.42 - Cataract extraction status, left eye (ICD-10) ?Z96.1 - Presence of intraocular lens (ICD-10) Status post prostatectomy ?Z90.79 - Acquired absence of other genital organ(s) (ICD-10) History of right inguinal hernia repair ?Z98.890 - Other specified postprocedural states (ICD-10) ?Z87.19 - Personal history of other diseases of the digestive system (ICD-10) History of hernia repair ?Z98.890 - Other specified postprocedural states (ICD-10) ?Z87.19 - Personal history of other diseases of the digestive system (ICD-10) Social History (Reviewed 06/16/24 @ 10:43 by Krystal Contreras ~ [facility], [facility]) What is your current living situation?: I presently have a place to live Problems where you live: no known problems Problems where you live details: none In the past 12 months, utilities in danger of being shut off: no In past 12 months, lack of transportation kept you from medical appts, meetings, work, or getting things needed for daily living: no In the past 12 mos, have been you worried that your food would run out before you had money to buy more?: never true In the past 12 mos, the food you bought just didn't last and you didn't have money to buy more?: never true Highest level of school completed/degree received: Associate degree: occupational, technical, vocational program Smoking Status: Current some day smoker What tobacco products do you use: cigars Nicotine containing products detail: cigars at times How often do you have a drink containing alcohol: 4 or more times a week Alcohol type: hard liquor How many standard drinks containing alcohol do you have on a typical day: 1 or 2 How often do you have six or more drinks on one occasion: Never AUDIT-C Alcohol total score: 4 Non-prescribed substance use: denies use Caffeine: Yes (coffee) How often does anyone, including family, friends and others, physically hurt you : never How often does anyone, including family, friends and others, insult or talk down to you: never How often does anyone, including family, friends and others, threaten you with harm: never How often does anyone, including family, friends and others, scream or curse at you: never service: Yes Exam Narrative: Exam Narrative: Pleasant. NAD. Good energy. Breathing easily. Skin is warm and dry. No swelling or erythema area of injections. Abdomen is overweight soft. Moving all extremities without difficulty. Const: Vital Signs, click to edit/add: Vital Signs - 24 hr 09/30/24 12:26 Temperature 97.2 F L Pulse Rate [Pulse Oximeter] 69 Respiratory Rate 18 Blood Pressure [Ri ght Upper Arm] 174/89 H Pulse Oximetry 95 Oxygen Delivery Me thod Room Air Documenting provider has reviewed patient's vital signs: yes Course Vital Signs Vital signs: Initial Vital Signs Temperature 97.2 F L 09/30/24 12:26 Temperature Source Temporal Artery Scan 09/30/24 12:26 Pulse Rate 69 09/30/24 12:26 Pulse Rhythm Regular 09/30/24 12:26 Respiratory Rate 18 09/30/24 12:26 Blood Pressure 174/89 H 09/30/24 12:26 Blood Pressure Mean 117 H 09/30/24 12:26 Blood Pressure Position Sitting 09/30/24 12:26 Pulse Oximetry 95 09/30/24 12:26 Oxygen Delivery Method Room Air 09/30/24 12:26 Vital Signs Temperature 97.2 F L 09/30/24 12:26 Pulse Rate 69 09/30/24 12:26 Respiratory Rate 18 09/30/24 12:26 Blood Pressure 174/89 H 09/30/24 12:26 Pulse Oximetry 95 09/30/24 12:26 Oxygen Delivery Method Room Air 09/30/24 12:26 Temperature 97.2 F L 09/30/24 12:26 Pulse Rate 69 09/30/24 12:26 Respiratory Rate 18 09/30/24 12:26 Blood Pressure 174/89 H 09/30/24 12:26 Pulse Oximetry 95 09/30/24 12:26 Oxygen Delivery Method Room Air 09/30/24 12:26 Medical Decision Making MDM Narrative Medical decision making narrative: A suspected that the constipation that he has been describing is exacerbating in part is back pain. Colicky exacerbations. Overall improved without other red flags. See patient discharge plan for further discussion Continue to focus on hydration. From above to keep stool soft can take daily MiraLax equivalent or Benefiber equivalent. Also Dulcolax as you mentioned. This of course needs to be combined with more liquid. For bowel stimulation particularly that which might be affected by oral opiates, a daily senna-containing pill or 2 would be recommended. If you have hard stool, consider placement of a suppository as you had done overnight or repeated enemas. This all would be combined though with treatment from above. Probiotics as you mentioned, certainly don't hurt. Medical Records Medical records reviewed: Yes I reviewed the patient's medical records Discharge Plan Discharge Clinical Impression: Constipation Patient Disposition: Home w/ Parent or Adult Condition: Improved Additional Instructions: Continue to focus on hydration. From above to keep stool soft can take daily MiraLax equivalent or Benefiber equivalent. Also Dulcolax as you mentioned. This of course needs to be combined with more liquid. For bowel stimulation particularly that which might be affected by oral opiates, a daily senna-containing pill or 2 would be recommended. If you have hard stool, consider placement of a suppository as you had done overnight or repeated enemas. This all would be combined though with treatment from above. Probiotics as you mentioned, certainly don't hurt. Prescriptions: No Action amlodipine 2.5 mg tablet 2.5 mg PO DAILY Qty: 90 3RF gabapentin 300 mg capsule 300 mg PO TID Qty: 270 3RF lisinopril 40 mg tablet 40 mg PO DAILY Qty: 90 3RF lovastatin 20 mg tablet 20 mg PO HS Qty: 90 3RF metoprolol succinate 50 mg tablet extended release 24 hr 50 mg PO DAILY Qty: 90 3RF omeprazole 20 mg capsule,delayed release(DR/EC) 20 mg PO DAILY Qty: 90 3RF acetaminophen [Tylenol Extra Strength] 500 mg tablet 1,000 mg PO QID PRN buprenorphine 5 mcg/hour patch weekly 1 patch topical Follow Up/Referrals: Norman Porter MD [Primary Care Provider, Family Practice] Stand Alone Forms: [employer] Info Instructions
--- OUTSIDE RECORDS SUMMARY | 2024-09-30 13:44 | XMS_ITS | Clinical Summary ---
Author Organization [facility] Address [address] , [address] [place] [address] Phone Care Team Providers Care Furnace Brazer Name Role Phone [facility] Unavailable Unava ilable Conditions or Problems Problem Name Problem Code Onset Date Status Entry Date Provider Comment Standard Description Annotate Arm pain, right 529148910 (SNOMED CT) Active Varun Bustos MD Pain in right arm Arm pain, left 794747015 (SNOMED CT) Active Varun Bustos MD Pain in left arm Hand numbness 397422725 (SNOMED CT) Active Varun Bustos MD Numbness [...] Procedures Code Procedure Name Date Entry Date CPT-71029 Nerve Conduction 13 or more studies 05/28 CPT-31621 EMG with NCS (5+ muscles) - 2 limbs 05/28 Vital Signs No information available. Immunizations No information available. Advance Directives No information available.
--- OUTSIDE RECORDS SUMMARY | 2024-09-30 13:44 | XMS_ITS | Continuity of Care Document ---
Author Organization [facility] Address [address] [place] [address] 11 [facility] [address] [place] [address] Phone Care Team Providers Care Wind Turbine Design Engineer Name Role Phone [facility] Unavailable Unava ilable Procedures Procedure Date Revision, including replacement INSRT/REDO SPINE N GENERATOR Implt neurostim elctr each IMPLANT NEUROELECTRODES IMPLANT NEUROELECTRODES INTERLAMINAR CRV OR THRC INTERLAMINAR CRV OR THRC INTERLAMINAR LMBR OR SAC Advance Directives Directive Yes / No Effective Date File Name No Information Encounters Encounter Description Practice Location Reason(s) For Visit Diagnoses Date Provider Providers Copied on Encounter [facility], [address] [place] [address], [id number], [place] tel:[phone] [place] [address] No Information [facility]. [address] [place] [address], [id number], [place]. tel:[phone] Referring Provider: Brendan Ryan, [facility] [address], [place], [address] . tel:[phone] [facility], [address] [place] [address] 11 [facility] [address], [place], [id number], tel:[phone] [place] [address] No Information [facility]. [address] [place] [address], [id number], [place]. tel:[phone] Referring Provider: Piter Weaver, [address] [facility], [place], [address] . tel:[phone] [facility], [address] [place] [address], [id number], [place] tel:[phone] [place] [address] No Information 4 [facility]. [address] [place] [address], [id number], [place]. tel:[phone] Referring Provider: Jessica Engle, [address] [place] [address], [address] . tel:[phone] [facility], [address] [place] [address], [id number], [place] tel:[phone] [place] [address] No Information 4 [facility]. [address] [place] [address], [id number], [place]. tel:[phone] Referring Provider: Jessica Engle, [address] [place] [address], [place], [address] . tel:[phone] [facility], [address] [place] [address], [id number], [place] tel:[phone] [place] [address] No Information 4 [facility]. [address] [place] [address], [id number], [place]. tel:[phone] Referring Provider: Piter Weaver, [address] [place] [address], [place], [address] . tel:[phone] [facility], [address] [place] [address], [id number], [place] tel:[phone] [place] [address] No Information 4 [facility]. [address] [facility] [address] [facility] [address], [place], [place], [id number], [place]. tel:[phone] Referring Provider: Piter Weaver, [address] [facility], [place], [address] . tel:[phone] Family History Family Member Type Diagnosis Age At Onset No Information Payers Payer name Insurance type Covered republican ID Authorpacheco ortega(s) Medicare [id number] [facility] Supplement [id number] Social History Type Description Quantity Date Captured [...]
--- OUTSIDE RECORDS SUMMARY | 2024-09-30 13:44 | XMS_ITS | Continuity of Care Document ---
Author Organization [facility] Address [address] [place] [address] Care Team Providers Care Unit Assistant Name Role Phone Ramirez Fox CRNA Unavailable Unavailable Procedures Procedure Date Percutaneous Image guided neuromodulatio n or intra ANESTH, HEAD/NECK/PTRUNK Percutaneous Image guided neuromodulatio n or intra Advance Directives Directive Yes / No Effective Date File Name No Information Encounters Encounter Description Practice Location Reason(s) For Visit Diagnoses Date Provider Providers Copied on Encounter [facility], [address] [place] [address], [id number], [facility] No Information 4 Ruddy Guzmán. [address] [place] [address], [id number] , . tel: [phone] Referring Provider: Piter Weaver, [address] [place] [address], [address] . tel:[phone] [facility], [address] [place] [address], [id number], [facility] No Information 4 Jonathan Jameson. [address] [place] [address], [id number] , . tel: [phone] Referring Provider: Jessica Engle, [address] [place], [address] . tel:[phone] [facility], [address] [place] [address] [place], [id number], [place] [facility] No Information 4 Ruddy Guzmán. [address] [facility], [place], [place], [id number] , . tel:[phone] Referring Provider: Jessica Engle, [address] [facility] [place], [address] . tel:[phone] Family History Family Member Type Diagnosis Age At Onset No Information Payers Payer name Insurance type Covered republican ID Authormisaela shannon(s) Medicare [id number] Blue Cross Supplement [id number] Social History Type Description Quantity Date Captured [...]
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
--- OUTSIDE RECORDS SUMMARY | 2024-09-30 13:44 | XMS_ITS | Clinical Summary ---
Author Organization [facility] Address [address] [place] [address] Care Team Providers Care Marine Technician Name Role Phone Norman Porter MD Primary Care Provider [phone] Allergies No known active allergies Medications omeprazole [...] prednisone 5 mg daily. Consider referral to cyber transport systems specialist? 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 Gender Identity Not on file Sexual Orientation Not on file Obstetrics History Last Filed Vital Signs Vital Sign Reading Time Taken Comments Blood Pressure 158/76 09/26/2023 9:30 AM CDT Pulse 61 09/26/2023 8:53 AM CDT Temperature 36.6 C (97.8 F) 01/19/2021 9:58 AM CDT Respiratory Rate 16 04/22/2019 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
== END 2024-09-30 13:41 | disposition home or self-care (01) ==
LOC: ED 13:42
PROVIDERS: Emergency Provider Family Medicine; PCP Family Medicine
DX: K59.00 Constipation, unspecified (principal); M54.50 Low back pain, unspecified; G89.29 Other chronic pain; Z79.891 Long term (current) use of opiate analgesic
CPT/HCPCS: 99282; 99283

== ENCOUNTER 2025-05-03 10:01 | Outpatient (CLI) | payer MEDICARE, BC, SELFPAY | END 2025-05-03 10:02 | disposition home or self-care (01) | LOC: NFLDREF 05-06 12:11 | PROVIDERS: PCP Family Medicine; Referring Provider Family Medicine; Visit Provider Family Medicine | DX: E78.5 Hyperlipidemia, unspecified (principal) | CPT/HCPCS: 80053; 80061 ==